=== PATIENT | male | born 1950 | race Caucasian/White ===

== ENCOUNTER 2018-03-15 09:15 | Inpatient (IN) | payer OTHER, MEDICARE ==
[2018-03-15] MEDS ORDERED: NS 0.9% 1000 ML** 1,000 ML IV ONE (09:37)
[2018-03-15] MEDS ORDERED: Ondansetron INJ* 2 MG/ML VIAL IV ONE (09:38)
[2018-03-15] MEDS ORDERED: Thiamine IV* 100 MG, Folic Acid IV* 1 MG, Multiple Vitamin IV ADULT* 10 ML in NS 0.9% 1... IV ONE (09:41)
[2018-03-15 09:59] LABS: ABS Basophils 0 10^3/ul (0-0.2); ABS Eosinophils 0 10^3/ul (0-0.6); ABS Lymphocytes 0.6 10^3/ul (1.0-4.8); ABS Monocytes 0.6 10^3/ul (0-0.8); ABS Neutrophils 5.5 10^3/ul (1.5-7.7); ABS Nucleated RBC 0 10^3/ul; Eosinophil % 0.2 %; Hematocrit 34 % (42-52); Hemoglobin 11.7 g/dl (14.0-18.0); Mean Corpuscular HGB Conc 35 g/dl (31-36); Mean Corpuscular Hemoglobin 32 pg (27-31); Mean Corpuscular Volume 93 fL (80-94); Mean Platelet Volume 7.1 fL (7.4-10.4); Nucleated Red Blood Cells % 0; Platelet Count 110 10^3/ul (150-450); Red Blood Count 3.64 10^6/ul (4.00-5.40); Red Cell Distribution Width 14 % (10.5-15); White Blood Count 6.8 10^3/ul (3.5-10.8)
[2018-03-15] MEDS ORDERED: LORazepam INJ* 2 MG/ML 1 ML VIAL IV PUSH ONE ×2 (10:00→11:17)
--- NOTE | 2018-03-15 10:03 | ED ---
GI/ HPI - HPI Summary HPI Summary: Patient is a 67-year-old male who presents emergency department for nausea and vomiting that started last night. Patient is a history of alcoholism and states he drinks about a pint of liquor a day if not more. Patient states last night he started with numerous episodes of nausea and vomiting. States last drink was yesterday he believes. Denies such symptoms of abdominal pain and diarrhea, fever, chest pain, shortness of breath. Patient also notes today he started with a tremor in his upper extremities. Patient is not sure if he's been through alcohol withdrawal the past. Otherwise has medical history of hypertension and DM. Symptoms are moderate in severity. No current modifying factors. Patient otherwise denies recent illness, cough, fever. - History of Current Complaint Chief Complaint: EDNauseaVomitDiarrh Time Seen by Provider: 03/15/18 09:25 Stated Complaint: NAUSEA Hx Obtained From: Patient Pain Intensity: 0 - Allergy/Home Medications Allergies/Adverse Reactions: Allergies Allergy/AdvReac Type Severity Reaction Status Date / Time hydrochlorothiazide Allergy Unknown Verified 03/15/18 09:36 Reaction Details Home Medications: Home Medications Irbesartan (NF) [Avapro (NF)] 150 mg PO DAILY 03/15/18 [History Confirmed ] Metoprolol Succinate XL TAB* [Toprol XL TAB*] 150 mg PO DAILY 03/15/18 [History Confirmed 03/15/18] amLODIPine TAB* [Norvasc 5 mg TAB*] 5 mg PO DAILY 03/15/18 [History Confirmed ] PMH/Surg Hx/FS Hx/Imm Hx Previously Healthy: Yes Infectious Disease History: No Infectious Disease History: Denies: Traveled Outside the [place] in Last 30 Days - Family History Known Family History: Positive: Non-Contributory - Social History Occupation: Employed Full-time Lives: With Family Alcohol Use: Daily Substance Use Type: Reports: None Smoking Status (MU): Former Smoker Review of Systems Constitutional: Negative Negative: Fever, Chills Eyes: Negative ENT: Negative Cardiovascular: Negative Respiratory: Negative Positive: Vomiting, Nausea. Negative: Abdominal Pain, Diarrhea Genitourinary: Negative Positive: Other - tremor to UEs Skin: Negative Neurological: Negative Negative: Headache, Weakness, Paresthesia, Numbness, Syncope All Other Systems Reviewed And Are Negative: Yes Physical Exam Triage Information Reviewed: Yes Vital Signs On Initial Exam: Initial Vitals Temp Pulse Resp BP Pulse Ox 98.3 F 118 37 152/83 100 03/15/18 09:24 03/15/18 09:24 03/15/18 09:24 03/15/18 09:24 03/15/18 09:24 Vital Signs Reviewed: Yes Appearance: Positive: Ill-Appearing - Pt. sitting up in bed, breathing fast, mild tremors to UEs. present. Skin: Positive: Warm, Dry Head/Face: Positive: Normal Head/Face Inspection, Temporal Artery Tenderness Eyes: Positive: Normal, EOMI, Conjunctiva Clear, Other: - Strabismus right eye Neck: Positive: Supple Respiratory/Lung Sounds: Positive: Clear to Auscultation, Breath Sounds Present Cardiovascular: Positive: Tachycardia Abdomen Description: Positive: Other: - Minimal tenderness to RUQ and epigastric region Musculoskeletal: Positive: Normal, Strength/ROM Intact, Other - Mild tremor to UEs. Neurological: Positive: Normal, CN Intact II-III Psychiatric: Positive: Affect/Mood Appropriate - [place] Coma Scale Best Eye Response: 4 - Spontaneous Best Motor Response: 6 - Obeys Commands Best Verbal Response: 5 - Oriented Coma Scale Total: 15 Diagnostics - Vital Signs Vital Signs Temp Pulse Resp BP Pulse Ox 03/15/18 09:45 32 03/15/18 09:29 118 35 152/83 100 03/15/18 09:24 98.3 F 118 37 152/83 100 - Laboratory Lab Results: Lab Results 03/15/18 Range/Units 09:53 WBC 6.8 (3.5-10.8) 10^3/ul RBC 3.64 L (4.00-5.40) 10^6/ul Hgb 11.7 L (14.0-18.0) g/dl Hct 34 L (42-52) % MCV 93 (80-94) fL MCH 32 H (27-31) pg MCHC 35 (31-36) g/dl RDW 14 (10.5-15) % Plt Count 110 L (150-450) 10^3/ul MPV 7.1 L (7.4-10.4) fL Neut % (Auto) 81.6 % Lymph % (Auto) 9.0 % [place] % (Auto) 8.8 % Eos % (Auto) 0.2 % Baso % (Auto) 0.4 % Absolute Neuts (auto) 5.5 (1.5-7.7) 10^3/ul Absolute Lymphs (auto) 0.6 L (1.0-4.8) 10^3/ul Absolute Monos (auto) 0.6 (0-0.8) 10^3/ul Absolute Eos (auto) 0 (0-0.6) 10^3/ul Absolute Basos (auto) 0 (0-0.2) 10^3/ul Absolute Nucleated RBC 0 10^3/ul Nucleated RBC % 0 Result Diagrams: 03/15/18 09:53 03/15/18 09:53 Lab Statement: Any lab studies that have been ordered have been reviewed, and results considered in the medical decision making process. GIGU Course/Dx - Course Course Of Treatment: Pt. presenting with likely alcohol withdrawal after N/V. He is tachycardic and hypertensive. Pt. started on IV fluids and banana bag. He was given a total of 2mg IV ativan which improved tremors. Labs show mild anemia , mild elevation in liver enzymes, significantly low magnesium. Negative serum ETOH. ECG done at 1043 shows a sinus tachycardia with artifact rate of 107bpm, left axis deviation, no ST elevation or depression. 4gm of magnesium IV given in ED. I spoke with hospitalist, Dr. Arthur, who agrees on admission. - Diagnoses Differential Diagnoses - Male: ACS, Cholecystitis, Cholelithiasis, Dehydration, Gastritis, Gastroenteritis (Bacterial), Gastroenteritis (Viral) Provider Diagnoses: Hypomagnesemia, Alcohol withdrawal Discharge - Sign-Out/Discharge Documenting (check all that apply): Patient Departure Patient Received Moderate/Deep Sedation with Procedure: No - Discharge Plan Condition: Stable Disposition: ADMITTED TO [facility] Referrals: Geovany Partida MD [Primary Care Provider] - - Billing Disposition and Condition Condition: STABLE Disposition: Admitted to [facility]
[2018-03-15 10:26] LABS: ALT 71 U/L (7-52); AST 80 U/L (13-39); Albumin 4.2 g/dL (3.2-5.2); Albumin/Globulin Ratio 1.3 (1-3); Alkaline Phosphatase 52 U/L (34-104); Amylase 33 U/L (29-103); Anion Gap 26 mmol/L (2-11); BUN/Creatinine Ratio 10.5 (8-20); Blood Urea Nitrogen 11 mg/dL (6-24); CO2 Carbon Dioxide 15 mmol/L (22-32); Calcium 10.4 mg/dL (8.6-10.3); Chloride 99 mmol/L (101-111); EGFR African American 85.8 (>60); EGFR Non-African American 70.9 (>60); Globulin 3.3 g/dL (2-4); Glucose 198 mg/dL (70-100); Potassium 3.8 mmol/L (3.5-5.0); Sodium 140 mmol/L (135-145); Total Protein 7.5 g/dL (6.4-8.9)
[2018-03-15 10:29] LABS: Magnesium 0.8 mg/dL (1.9-2.7)
[2018-03-15] MEDS ORDERED: Magnesium Sulfate 2 GM IV* 2 GM/50 ML BAG IVPB ONE ×3 (10:29→16:40)
[2018-03-15 10:57] LABS: Alcohol < 10 mg/dL (<10)
[2018-03-15] MEDS ORDERED: Ondansetron INJ* 2 MG/ML VIAL IV PRN (11:52)
[2018-03-15] MEDS ORDERED: Magnesium Hydroxide LIQ* 30 ML UDC PO PRN (11:52)
[2018-03-15] MEDS ORDERED: Thiamine IV* 100 MG/ML 2 ML VIAL IM ONE (12:00)
[2018-03-15] MEDS ORDERED: Acetaminophen TAB* 325 MG PO PRN (12:00)
[2018-03-15] MEDS ORDERED: Dextrose 50% Syringe 50 ML* 25 GM/50 ML SYRINGE IV PUSH PRN (12:11)
[2018-03-15 12:36] LABS: INR 1.04 (0.77-1.02)
[2018-03-15] MEDS: NS 0.9% 1000 ML** 1,000 ML IV SCH (13:16)
--- NOTE | 2018-03-15 13:53 | HP ---
AMENDED REPORT NOW INCLUDES COSIGNER DESIGNATION CC: Dr. Geovany Partida * ADMISSION HISTORY AND PHYSICAL: DATE OF ADMISSION: 03/15/18 PRIMARY CARE PROVIDER: Dr. Geovany Partida. ATTENDING FOR THIS ADMISSION: Dr. Edgar Arthur.* (DICTATED BY WILL MISTRY NP) CHIEF COMPLAINT: Nausea, vomiting, and inability to ambulate with frequent falls. HISTORY OF PRESENT ILLNESS: This is a very pleasant 67-year-old male patient, who presents to the emergency department by EMS services with his . The patient and endorsed that he has been vomiting since yesterday. The patient is an every day alcohol drinker, approximately 2 pints of scotch on a daily basis. His also endorses that the patient does drink first thing in the morning for many years. The patient seems to minimize his drinking, however , after further discussion, the patient has admitted to drinking more than he initially told the ER staff. In either case, the patient did start vomiting last night uncontrollably. The patient stopped drinking yesterday afternoon because he was not feeling well and then this morning, he became incredibly tremulous, was unable to ambulate. The patient's also states that he has been having frequent falls while at home. A few weeks back he spent 12 hours on the floor, was unable to get up. At that point, the did call EMS services; however, the patient refused medical advice and did not come to the hospital for evaluation. The patient also states that he noticed he was having difficulty driving. He has had some decreased sensation on the right lower extremity and inability to dorsiflex, which is also new for him. The patient in the emergency department is visibly tremulous and tachycardic. He also had very low magnesium of 0.8. For these reasons, we were asked to evaluate the patient for admission. PAST MEDICAL HISTORY: Significant for hypertension and diabetes mellitus, which is diet controlled. MEDICATIONS AT HOME: Include: 1. Amlodipine 5 mg p.o. daily. 2. Metoprolol succinate XL 150 mg p.o. daily. 3. Irbesartan 150 mg p.o. daily. ALLERGIES: The patient has an allergy to HYDROCHLOROTHIAZIDE, which causes dizziness, rash, and shortness of breath. FAMILY HISTORY: A mother with hypertension, a sister with atrial fibrillation. His mother is alive and well. She is 90 years of age. SOCIAL HISTORY: The patient endorses daily alcohol use. Denies tobacco. He states he quit smoking approximately 10 years ago. Denies any illicit drug use. 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 He is . Lives at home with his , Lauren Josue, who is his healthcare proxy. REVIEW OF SYSTEMS: The patient is complaining of mild intermittent nausea now. No vomiting. No abdominal pain. No urinary complaints. He does state he has some focal weakness of the lower extremities. Feels like the right foot he has inability to dorsiflex, which has been persistent for several weeks. Denies any visual disturbances. He does have a mild headache. He is visibly anxious and does have history of anxiety. PHYSICAL EXAMINATION GENERAL: Reveals older appearing, white gentleman, somewhat older than his stated age. VITAL SIGNS: Blood pressure 151/81, heart rate 101, respiratory rate 20, O2 saturation 95% on room air with temperature of 98.3. HEENT: The patient is atraumatic, normocephalic. He has PERRLA with nonicteric sclerae. His right eye does have a wander with right outward gaze, which is the patient's baseline. Oral mucosa is moist. Tongue is midline. NECK: Supple, nontender. No JVD noted. No carotid bruits auscultated. RESPIRATORY: His lungs are clear bilaterally to auscultation with no wheezing, rhonchi, or rales. CARDIOVASCULAR: Positive S1, S2. Rate is tachycardic. Rhythm is regular. No gallops or rubs noted. No murmurs noted. ABDOMEN: Large, obese, protuberant. He has positive bowel sounds in all 4 quadrants. There is no pain at this time. It is difficult to palpate, but it does appear that his liver is palpable below the rib line. Again difficult to assess secondary to the patient's body habitus. MUSCULOSKELETAL: There is no clubbing and no cyanosis. He does have some reddened calloused areas of the right foot and right great toe with some disruption of the right great toenail bed secondary to a tripping accident per patient's report. NEUROLOGIC: He has decreased sensation to the bilateral lower extremities. He endorses an inability to ambulate, so we did not get the patient out of bed. SKIN: Otherwise warm, dry, and intact. PSYCHIATRIC: He is alert and oriented x3. The does state that the patient is forgetful and he is exhibiting some mild anxiety at this time. DIAGNOSTIC STUDIES/LAB DATA: WBCs 6.8, RBCs 3.64, hemoglobin 11.7, hematocrit 34, MCV 93, MCH 32, platelets 110. Sodium 140, potassium 3.8, chloride 99, CO2 15, anion gap is 26, BUN 11, creatinine 1.05, glucose is 198, calcium 10.4, magnesium 0.8, bilirubin 1.20, AST 80, ALT 71, alk phos 52. Troponin is negative at 0.00. Protein at 7.5, albumin 4.2, globulin 3.3, albumin-globulin ratio 1.3, amylase 33, lipase 27. Serum alcohol is less than 10. Chest x-ray in the ER today shows a small right basilar infiltrate, otherwise no cardiomegaly and no further changes noted. Lungs are otherwise clear. EKG showed sinus tachycardia, which I personally reviewed. No further imaging is available. ASSESSMENT: This is a 67-year-old male patient with a history of alcohol abuse times many years, who presents to the emergency department with nausea, vomiting , and what appears to be alcohol withdrawal. PLAN: The patient will be admitted to medical service for inpatient diagnosis. 1. Alcohol abuse with withdrawal: The patient has already received a banana bag in the emergency department. We will continue him on thiamine, folic acid, and multivitamin daily. He has been placed on [facility] protocol for seizure prophylaxis; he is not currently exhibiting any seizures. We will continue normal saline at 75 mL/hr and clear liquid diet as tolerated. 2. Frequent falls: It is unclear whether this is acute or not. The patient's states that he has had progressive decline in function over the past 6 weeks. She feels that his ability to ambulate and drive is surely impaired right now as evidenced by his recent falls, where he was not able to get up from the floor himself. We will get a CAT scan of his head to ensure no central pathology. There is a possibility, because the patient is diabetic that he has some diabetic neuropathy as well. Will obtain PT and OT consults. 3. Transaminitis: His liver enzymes are elevated. We will send him for liver ultrasound and evaluate. Patient possibly has alcoholic hepatitis, which is consistent with his history. Given that the liver function is elevated, we will also get coagulation studies. Continue to follow his labs daily. 4. Hypomagnesemia: Likely secondary to vomiting and alcohol abuse. He has already received 4 g of mag. We will recheck his mag later today and follow daily labs. 5. Diabetes mellitus: The patient states that he is diet controlled; however, he has not had anything to eat or drink since yesterday and his blood glucose is 198. We will draw a hemoglobin A1c. He will be placed on Accu-Cheks a.c. and h.s. with lispro sliding scale. Following the hemoglobin A1c may impact medications for him at discharge to control his diabetes better. 6. Code status is full. 7. DVT prophylaxis: Pending the patient's INR, he is at moderate risk for DVT. However, given his low platelets, and we will check his INR, he may be too high risk for chemo prophylaxis. Once we have his INR, we will determine whether the patient requires SCDs only or if we will place him on heparin subcutaneously. DISPOSITION: The patient has been admitted to inpatient service under Medicine. This case has been discussed with Dr. Arthur, who is the attending on this case. TIME SPENT: Approximately 60 minutes interfacing with the patient and his , and evaluating the chart and labs, determining plan of care. The rest of the patient's course will be determined by further diagnostics, laboratories, and any other input from other providers as warranted during this admission. We will continue to monitor the patient closely. WILL MISTRY, ELIZA [id number]/CPS #: [id number] ABRAN
[2018-03-15 14:34] LABS: Urine Appearance Cloudy; Urine Bilirubin Negative (Negative); Urine Blood Negative (Negative); Urine Color Yellow; Urine Glucose 1+(50 mg/dL) (Negative); Urine Ketones 1+ (Negative); Urine Nitrite Negative (Negative); Urine Protein Negative (Negative); Urine Specific Gravity 1.015 (1.010-1.030); Urine Urobilinogen Negative (Negative)
[2018-03-15] MEDS: amLODIPine TAB* 5 MG PO SCH (15:15)
[2018-03-15] MEDS: LORazepam TAB(*) 1 MG PO SCH ×5 (15:15→23:07)
[2018-03-15] MEDS: Metoprolol Succinate XL TAB* 50 MG PO SCH (15:15)
[2018-03-15] MEDS ORDERED: Scopolamine 1.5 mg* PATCH TRANSDERM SCH (17:00)
[2018-03-15] MEDS: Insulin LISPRO* 1 UNITS UNIT SUBCUT SCH ×2 (17:06→20:35)
[2018-03-16] MEDS: LORazepam TAB(*) 1 MG PO SCH ×7 (02:14→22:16)
[2018-03-16] MEDS: LORazepam INJ* 2 MG/ML 1 ML VIAL IV PUSH PRN ×2 (03:18→20:15)
[2018-03-16 06:20] LABS: INR 1.09 (0.77-1.02)
[2018-03-16 06:23] LABS: Hematocrit 30 % (42-52); Hemoglobin 10.4 g/dl (14.0-18.0); Mean Corpuscular HGB Conc 35 g/dl (31-36); Mean Corpuscular Hemoglobin 32 pg (27-31); Mean Corpuscular Volume 92 fL (80-94); Red Blood Count 3.27 10^6/ul (4.00-5.40); Red Cell Distribution Width 14 % (10.5-15); White Blood Count 3.2 10^3/ul (3.5-10.8)
[2018-03-16 06:41] LABS: Albumin 3.8 g/dL (3.2-5.2); Albumin/Globulin Ratio 1.4 (1-3); BUN/Creatinine Ratio 10.6 (8-20); Calcium 8.9 mg/dL (8.6-10.3); EGFR African American 97.5 (>60); EGFR Non-African American 80.5 (>60); Globulin 2.8 g/dL (2-4); Potassium 3.7 mmol/L (3.5-5.0); Total Bilirubin 1.5 mg/dL (0.2-1.0); Total Protein 6.6 g/dL (6.4-8.9)
[2018-03-16 06:53] LABS: ABS Basophils 0 10^3/ul (0-0.2); ABS Eosinophils 0 10^3/ul (0-0.6); ABS Lymphocytes 0.7 10^3/ul (1.0-4.8); ABS Monocytes 0.4 10^3/ul (0-0.8); ABS Neutrophils 2.1 10^3/ul (1.5-7.7); ABS Nucleated RBC 0 10^3/ul; Lymphocyte % 21.2 %; Mean Platelet Volume 7.4 fL (7.4-10.4); Nucleated Red Blood Cells % 0.1; Platelet Count 66 10^3/ul (150-450)
[2018-03-16] MEDS: NS 0.9% 1000 ML** 1,000 ML IV SCH ×2 (07:35→22:24)
[2018-03-16 07:38] LABS: Magnesium 1.8 mg/dL (1.9-2.7)
[2018-03-16 08:03] LABS: Folate 7.66 ng/mL (>3.99)
[2018-03-16] MEDS ORDERED: Magnesium Sulfate 2 GM IV* 2 GM/50 ML BAG IVPB ONE (08:03)
[2018-03-16] MEDS: Insulin LISPRO* 1 UNITS UNIT SUBCUT SCH ×4 (08:17→20:23)
[2018-03-16] MEDS: Acetaminophen TAB* 325 MG PO PRN (08:33)
[2018-03-16] MEDS: Metoprolol Succinate XL TAB* 50 MG PO SCH (08:41)
[2018-03-16] MEDS: Folic Acid TAB* 1 MG PO SCH (08:42)
[2018-03-16] MEDS: Multivitamins/Minerals TAB PO SCH (08:42)
[2018-03-16] MEDS: Thiamine TAB* 100 MG TAB PO SCH (08:42)
[2018-03-16] MEDS: IRBESARTAN 150 MG PO SCH (08:46)
[2018-03-16] MEDS: amLODIPine TAB* 5 MG PO SCH (08:54)
[2018-03-16] MEDS ORDERED: Albuterol 2.5 MG/3 ML NEB.SOL* (0.083%) INH PRN (09:11)
[2018-03-16] MEDS: guaiFENesin ER TAB 600 MG PO SCH ×2 (10:32→21:59)
[2018-03-16] MEDS: Cyanocobalamin TAB* 500 MCG PO SCH (10:39)
--- NOTE | 2018-03-16 10:54 | PN ---
Subjective Date of Service: 03/16/18 Interval History: Patient is difficult to understand today, is able to mumble words but is mainly unintelligible. Patient denies CP, SOB. Patient denies abdominal pain, F/C, or other pain. Family History: Unchanged from Admission Social History: Unchanged from Admission Past Medical History: Unchanged from Admission Objective Active Medications: Acetaminophen (Tylenol Tab*) 650 mg PO Q4H PRN PRN Reason: FEVER/PAIN Last Admin: 03/16/18 08:33 Dose: 650 mg Albuterol (Ventolin 2.5 Mg/3 Ml Neb.Amber*) 2.5 mg INH Q4H PRN PRN Reason: SOB/WHEEZING Amlodipine Besylate (Norvasc Tab*) 5 mg PO DAILY [facility] Last Admin: 03/16/18 08:54 Dose: Not Given Cyanocobalamin (Vitamin B12 Tab*) 1,000 mcg PO DAILY [facility] Last Admin: 03/16/18 10:39 Dose: 1,000 mcg Dextrose (D50w Syringe 50 Ml*) 12.5 gm IV PUSH .FOR FS < 60 - SS PRN PRN Reason: FS < 60 Folic Acid (Folvite Tab*) 1 mg PO DAILY [facility] Last Admin: 03/16/18 08:42 Dose: Not Given Guaifenesin (Mucinex*) 1,200 mg PO BID [facility] Last Admin: 03/16/18 10:32 Dose: 1,200 mg Sodium Chloride (Ns 0.9% 1000 Ml) 1,000 mls @ 75 mls/hr IV PER RATE [facility] Last Admin: 03/16/18 07:35 Dose: 75 mls/hr Insulin Human Lispro (Humalog*) 0 units SUBCUT ACHS [facility]; Protocol Last Admin: 03/16/18 08:17 Dose: Not Given Irbesartan (Avapro (Nf)) 150 mg PO DAILY [facility] Last Admin: 03/16/18 08:46 Dose: 150 mg Lorazepam (Ativan Tab(*)) 0 - 6 mg PO .PER [facility] PROTOCOL [facility]; Protocol Last Admin: 03/16/18 08:32 Dose: 2 mg Lorazepam (Ativan Inj*) 1 mg IV PUSH Q6H PRN PRN Reason: severe agitation or vomiting Last Admin: 03/16/18 03:18 Dose: 1 mg Magnesium Hydroxide (Milk Of Magnesia Liq*) 30 ml PO Q4H PRN PRN Reason: CONSTIPATION Metoprolol Succinate (Toprol Xl Tab*) 150 mg PO DAILY [facility] Last Admin: 03/16/18 08:41 Dose: 150 mg Multivitamins/Minerals (Theragran/Minerals Tab*) 1 tab PO DAILY [facility] Last Admin: 03/16/18 08:42 Dose: Not Given Ondansetron HCl (Zofran Inj*) 4 mg IV Q4H PRN PRN Reason: NAUSEA/VOMITING Last Admin: 03/15/18 16:34 Dose: 4 mg Pharmacy Profile Note (Scopolamine Patch Remove*) 1 note PATCH OFF Q72H [facility] Scopolamine (Transderm-Scop 1.5 Mg Patch*) 1 patch TRANSDERM Q72H [facility] Last Admin: 03/15/18 17:06 Dose: 1 patch Thiamine HCl (Vitamin B-1 Tab*) 100 mg PO DAILY [facility] Last Admin: 03/16/18 08:42 Dose: Not Given Vital Signs - 8 hr 03/16/18 03/16/18 03/16/18 03:18 04:03 04:04 Temperature 98.4 F Pulse Rate 92 Respiratory 24 20 18 Rate Blood Pressure 151/70 (mmHg) O2 Sat by Pulse 98 Oximetry 03/16/18 03/16/18 03/16/18 04:10 06:03 06:08 Temperature 98.0 F Pulse Rate 86 Respiratory 20 24 22 Rate Blood Pressure 141/73 (mmHg) O2 Sat by Pulse 98 Oximetry 03/16/18 03/16/18 03/16/18 06:11 06:14 07:07 Temperature 99.1 F Pulse Rate 83 Respiratory 24 22 20 Rate Blood Pressure 133/72 (mmHg) O2 Sat by Pulse Oximetry 03/16/18 03/16/18 03/16/18 08:00 08:08 08:15 Temperature 100.1 F Pulse Rate 89 Respiratory 20 20 20 Rate Blood Pressure 142/62 (mmHg) O2 Sat by Pulse 97 Oximetry 03/16/18 03/16/18 08:32 10:07 Temperature 98.7 F Pulse Rate 87 Respiratory 20 20 Rate Blood Pressure 115/66 (mmHg) O2 Sat by Pulse 100 Oximetry Oxygen Devices in Use Now: None Appearance: Patient is a 67yo male who appears stated age and is sitting in the bed in [facility]. Eyes: No Scleral Icterus, PERRLA Ears/Nose/Mouth/Throat: NL Teeth, Lips, Gums, Clear Oropharnyx, Mucous Membranes Moist Neck: NL Appearance and Movements; NL JVP, Trachea Midline Respiratory: Symmetrical Chest Expansion and Respiratory Effort, - - Rhonchi throughout. Cardiovascular: NL Sounds; No Murmurs; No JVD, RRR, No Edema Abdominal: NL Sounds; No Tenderness; No Distention, No Hepatosplenomegaly Lymphatic: No Cervical Adenopathy Extremities: No Edema, No Clubbing, Cyanosis Skin: No Rash or Ulcers, No Nodules or Sclerosis Neurological: - - Right leg plantar and dorsiflexion weakness. CN II-XII grossly intact. Result Diagrams: 03/16/18 05:43 03/16/18 05:43 Additional Lab and Data: Lab Results Assess/Plan/Problems-Billing Assessment: Patient is a 67yo male with a PMH for alcohol abuse, DM II, HTN, who is admitted with nausea and alcohol withdrawal and is still suffering significant symptoms of withdrawal. - Patient Problems (1) Alcohol withdrawal Current Visit: Yes Status: Acute Code(s): F10.239 - ALCOHOL DEPENDENCE WITH WITHDRAWAL, UNSPECIFIED SNOMED Code(s): 172690249 Comment: - Likely had to stop drinking due to nausea and then began withdrawing - Continue [facility] protocol, is having tachycardia, AMS, Tremor, agitation - Continue vitamin supplementation - Replace electrolytes PRN - Has mild alcoholic hepatitis, no indication for steroids at this time. (2) Right leg weakness Current Visit: Yes Status: Acute Code(s): R29.898 - OTH SYMPTOMS AND SIGNS INVOLVING THE MUSCULOSKELETAL SYSTEM SNOMED Code(s): 915646764 Comment: - Unknown cause, no back pain able to be elicited on exam - Possible radiculoapthy, also bordeline B12 deficient, diabetic and alcoholic which may be contributing to neuropathy - Will need further evaluation after WAM. - Contributing to frequent falls. (3) DM II (diabetes mellitus, type II), controlled Current Visit: Yes Status: Acute Code(s): E11.9 - TYPE 2 DIABETES MELLITUS WITHOUT COMPLICATIONS SNOMED Code(s): 97609544 Comment: - SSI while in the hospital, good control with A1c of 5.9 (4) HTN (hypertension) Current Visit: Yes Status: Acute Code(s): I10 - ESSENTIAL (PRIMARY) HYPERTENSION SNOMED Code(s): 24431057 Comment: - Normotensive, continue irbesartan and amlodipine. (5) Pancytopenia Current Visit: Yes Status: Acute Code(s): D61.818 - OTHER PANCYTOPENIA SNOMED Code(s): 013153241 Comment: - Likely alcohol induced - Monitor daily (6) DVT prophylaxis Current Visit: Yes Status: Acute Code(s): OMM5455 - SNOMED Code(s): 500089213 Comment: - SCDs in setting to thrombocytopenia (7) Full code status Current Visit: Yes Status: Acute Code(s): Z78.9 - OTHER SPECIFIED HEALTH STATUS SNOMED Code(s): 675302792 Status and Disposition: Inpatient for alcohol withdrawal
[2018-03-17] MEDS: Nystatin TOP POWDER* 15 GM BTL TOPICAL SCH ×3 (02:12→22:07)
[2018-03-17] MEDS: LORazepam TAB(*) 1 MG PO SCH ×5 (06:21→22:06)
[2018-03-17 07:28] LABS: Albumin 3.7 g/dL (3.2-5.2); Albumin/Globulin Ratio 1.2 (1-3); BUN/Creatinine Ratio 11.4 (8-20); Calcium 8.9 mg/dL (8.6-10.3); EGFR African American 105.2 (>60); EGFR Non-African American 86.9 (>60); Globulin 3.2 g/dL (2-4); Magnesium 1.9 mg/dL (1.9-2.7); Total Bilirubin 1.7 mg/dL (0.2-1.0); Total Protein 6.9 g/dL (6.4-8.9)
[2018-03-17 07:31] LABS: Potassium 3.9 mmol/L (3.5-5.0)
[2018-03-17 07:59] LABS: ABS Basophils 0 10^3/ul (0-0.2); ABS Eosinophils 0.1 10^3/ul (0-0.6); ABS Lymphocytes 1.1 10^3/ul (1.0-4.8); ABS Monocytes 0.8 10^3/ul (0-0.8); ABS Neutrophils 4.1 10^3/ul (1.5-7.7); ABS Nucleated RBC 0 10^3/ul; Hematocrit 32 % (42-52); Hemoglobin 10.7 g/dl (14.0-18.0); Lymphocyte % 17.5 %; Mean Corpuscular HGB Conc 34 g/dl (31-36); Mean Corpuscular Hemoglobin 31 pg (27-31); Mean Corpuscular Volume 94 fL (80-94); Mean Platelet Volume 8.5 fL (7.4-10.4); Nucleated Red Blood Cells % 0.2; Red Cell Distribution Width 14 % (10.5-15); White Blood Count 6.2 10^3/ul (3.5-10.8)
[2018-03-17 08:00] LABS: Platelet Count 69 10^3/ul (150-450)
[2018-03-17] MEDS: Insulin LISPRO* 1 UNITS UNIT SUBCUT SCH ×2 (08:36→13:36)
[2018-03-17] MEDS: Metoprolol Succinate XL TAB* 50 MG PO SCH (09:30)
[2018-03-17] MEDS: Folic Acid TAB* 1 MG PO SCH (09:30)
[2018-03-17] MEDS: Thiamine TAB* 100 MG TAB PO SCH (09:30)
[2018-03-17] MEDS: amLODIPine TAB* 5 MG PO SCH (09:30)
[2018-03-17] MEDS: Cyanocobalamin TAB* 500 MCG PO SCH (09:30)
[2018-03-17] MEDS: guaiFENesin ER TAB 600 MG PO SCH ×2 (09:30→22:06)
[2018-03-17] MEDS: Multivitamins/Minerals TAB PO SCH (09:30)
[2018-03-17] MEDS: IRBESARTAN 150 MG PO SCH (09:30)
[2018-03-17] MEDS: Acetaminophen TAB* 325 MG PO PRN (10:39)
--- NOTE | 2018-03-17 11:15 | PN ---
Subjective Date of Service: 03/17/18 Interval History: Patient is still very lethargic, but is having no more "shadow boxing" movements which his said were happening frequently. Patient is interactive and is able to open eyes and respond to questions, but responses are unintelligible. Discussed with who has been cleaning alcohol out of the house and states that there is much more than she anticipated based on his known drinking. Family History: Unchanged from Admission Social History: Unchanged from Admission Past Medical History: Unchanged from Admission Objective Active Medications: Acetaminophen (Tylenol Tab*) 650 mg PO Q4H PRN PRN Reason: FEVER/PAIN Last Admin: 03/17/18 10:39 Dose: 650 mg Albuterol (Ventolin 2.5 Mg/3 Ml Neb.Amber*) 2.5 mg INH Q4H PRN PRN Reason: SOB/WHEEZING Amlodipine Besylate (Norvasc Tab*) 5 mg PO DAILY [facility] Last Admin: 03/17/18 09:30 Dose: 5 mg Cyanocobalamin (Vitamin B12 Tab*) 1,000 mcg PO DAILY [facility] Last Admin: 03/17/18 09:30 Dose: 1,000 mcg Dextrose (D50w Syringe 50 Ml*) 12.5 gm IV PUSH .FOR FS < 60 - SS PRN PRN Reason: FS < 60 Folic Acid (Folvite Tab*) 1 mg PO DAILY [facility] Last Admin: 03/17/18 09:30 Dose: 1 mg Guaifenesin (Mucinex*) 1,200 mg PO BID [facility] Last Admin: 03/17/18 09:30 Dose: 1,200 mg Sodium Chloride (Ns 0.9% 1000 Ml) 1,000 mls @ 75 mls/hr IV PER RATE [facility] Last Admin: 03/16/18 22:24 Dose: 75 mls/hr Insulin Human Lispro (Humalog*) 0 units SUBCUT ACHS [facility]; Protocol Last Admin: 03/17/18 08:36 Dose: Not Given Irbesartan (Avapro (Nf)) 150 mg PO DAILY [facility] Last Admin: 03/17/18 09:30 Dose: 150 mg Lorazepam (Ativan Tab(*)) 0 - 6 mg PO .PER [facility] PROTOCOL [facility]; Protocol Last Admin: 03/17/18 10:39 Dose: 2 mg Lorazepam (Ativan Inj*) 1 mg IV PUSH Q6H PRN PRN Reason: severe agitation or vomiting Last Admin: 03/16/18 20:15 Dose: 1 mg Magnesium Hydroxide (Milk Of Magnesia Liq*) 30 ml PO Q4H PRN PRN Reason: CONSTIPATION Metoprolol Succinate (Toprol Xl Tab*) 150 mg PO DAILY [facility] Last Admin: 03/17/18 09:30 Dose: 150 mg Multivitamins/Minerals (Theragran/Minerals Tab*) 1 tab PO DAILY [facility] Last Admin: 03/17/18 09:30 Dose: 1 tab Nystatin (Nystatin Top Powder*) 1 applic TOPICAL BID [facility] Last Admin: 03/17/18 09:31 Dose: 1 applic Ondansetron HCl (Zofran Inj*) 4 mg IV Q4H PRN PRN Reason: NAUSEA/VOMITING Last Admin: 03/15/18 16:34 Dose: 4 mg Thiamine HCl (Vitamin B-1 Tab*) 100 mg PO DAILY [facility] Last Admin: 03/17/18 09:30 Dose: 100 mg Vital Signs - 8 hr 03/17/18 03/17/18 03/17/18 03:21 04:03 04:05 Temperature 99.7 F 99.7 F Pulse Rate 93 88 88 Respiratory 20 24 28 Rate Blood Pressure 146/71 146/71 (mmHg) O2 Sat by Pulse 96 95 95 Oximetry 03/17/18 03/17/18 03/17/18 06:11 06:14 06:21 Temperature 98.6 F Pulse Rate 98 Respiratory 32 32 32 Rate Blood Pressure 150/92 (mmHg) O2 Sat by Pulse 98 Oximetry 03/17/18 03/17/18 03/17/18 08:00 08:09 08:20 Temperature 98.6 F Pulse Rate 92 Respiratory 22 21 22 Rate Blood Pressure 142/80 (mmHg) O2 Sat by Pulse 95 Oximetry 03/17/18 03/17/18 10:07 10:39 Temperature 100.3 F Pulse Rate 87 Respiratory 24 28 Rate Blood Pressure 128/78 (mmHg) O2 Sat by Pulse 98 Oximetry Oxygen Devices in Use Now: None Appearance: Patient is a 67yo male who appears stated age and is sitting in the bed in [facility]. Eyes: No Scleral Icterus, PERRLA Ears/Nose/Mouth/Throat: NL Teeth, Lips, Gums, Clear Oropharnyx, - - Very dry mouth. Neck: NL Appearance and Movements; NL JVP, Trachea Midline Respiratory: Symmetrical Chest Expansion and Respiratory Effort, - - Rhonchi in bronchial areas. Cardiovascular: NL Sounds; No Murmurs; No JVD, RRR, No Edema Abdominal: NL Sounds; No Tenderness; No Distention, No Hepatosplenomegaly Lymphatic: No Cervical Adenopathy Extremities: No Edema, No Clubbing, Cyanosis Skin: No Rash or Ulcers, No Nodules or Sclerosis Neurological: - - Unable to cooperate with neuro exam today. Result Diagrams: 03/17/18 06:35 03/17/18 06:35 Additional Lab and Data: Lab Results Assess/Plan/Problems-Billing Assessment: Patient is a 67yo male with a PMH for alcohol abuse, DM II, HTN, who is admitted with nausea and alcohol withdrawal and is still suffering significant symptoms of withdrawal. - Patient Problems (1) Alcohol withdrawal Current Visit: Yes Status: Acute Code(s): F10.239 - ALCOHOL DEPENDENCE WITH WITHDRAWAL, UNSPECIFIED SNOMED Code(s): 504618327 Comment: - Improvement gradually. - Likely had to stop drinking due to nausea and then began withdrawing - Continue WAM protocol, is having tachycardia, AMS, Tremor, agitation - Continue vitamin supplementation - Replace electrolytes PRN - Has mild alcoholic hepatitis, no indication for steroids at this time. (2) Right leg weakness Current Visit: Yes Status: Acute Code(s): R29.898 - OTH SYMPTOMS AND SIGNS INVOLVING THE MUSCULOSKELETAL SYSTEM SNOMED Code(s): 459781281 Comment: - Unknown cause, no back pain able to be elicited on exam - Possible radiculoapthy, also bordeline B12 deficient, diabetic and alcoholic which may be contributing to neuropathy - Will need further evaluation after WAM. - Contributing to frequent falls. (3) DM II (diabetes mellitus, type II), controlled Current Visit: Yes Status: Acute Code(s): E11.9 - TYPE 2 DIABETES MELLITUS WITHOUT COMPLICATIONS SNOMED Code(s): 44799966 Comment: - SSI while in the hospital, good control with A1c of 5.9 (4) HTN (hypertension) Current Visit: Yes Status: Acute Code(s): I10 - ESSENTIAL (PRIMARY) HYPERTENSION SNOMED Code(s): 67702605 Comment: - Normotensive, continue irbesartan and amlodipine. (5) Pancytopenia Current Visit: Yes Status: Acute Code(s): D61.818 - OTHER PANCYTOPENIA SNOMED Code(s): 293995846 Comment: - Stable with slight improvement. - Likely alcohol induced - Monitor daily (6) DVT prophylaxis Current Visit: Yes Status: Acute Code(s): MAR5530 - SNOMED Code(s): 696587092 Comment: - SCDs in setting to thrombocytopenia (7) Full code status Current Visit: Yes Status: Acute Code(s): Z78.9 - OTHER SPECIFIED HEALTH STATUS SNOMED Code(s): 316044447 Status and Disposition: Inpatient for alcohol withdrawal, May benefit from alcohol rehab at discharge.
[2018-03-17] MEDS: NS 0.9% 1000 ML** 1,000 ML IV SCH ×2 (11:42→19:15)
[2018-03-17 17:51] LABS: Urine Appearance Clear; Urine Bacteria Absent (Absent); Urine Bilirubin 1+ (Negative); Urine Blood Negative (Negative); Urine Color Amber; Urine Glucose Negative (Negative); Urine Ketones Trace (Negative); Urine Nitrite Negative (Negative); Urine Protein 1+(30 mg/dL) (Negative); Urine Red Blood Cell Trace(0-2/hpf) (Absent); Urine Specific Gravity 1.024 (1.010-1.030); Urine Urobilinogen Positive (Negative); Urine White Blood Cell Trace(0-5/hpf) (Absent)
[2018-03-17 19:27] LABS: Myoglobin 60.2 ng/mL (17.4-105.7)
[2018-03-18] MEDS: LORazepam TAB(*) 1 MG PO SCH (01:07)
[2018-03-18] MEDS: NS 0.9% 1000 ML** 1,000 ML IV SCH ×2 (06:25→15:52)
[2018-03-18 07:40] LABS: ABS Basophils 0 10^3/ul (0-0.2); ABS Eosinophils 0.2 10^3/ul (0-0.6); ABS Lymphocytes 0.8 10^3/ul (1.0-4.8); ABS Monocytes 0.6 10^3/ul (0-0.8); ABS Neutrophils 2.4 10^3/ul (1.5-7.7); ABS Nucleated RBC 0 10^3/ul; Eosinophil % 4.1 %; Hematocrit 30 % (42-52); Lymphocyte % 20.9 %; Mean Corpuscular HGB Conc 34 g/dl (31-36); Mean Corpuscular Hemoglobin 31 pg (27-31); Mean Corpuscular Volume 94 fL (80-94); Mean Platelet Volume 7.4 fL (7.4-10.4); Nucleated Red Blood Cells % 0; Platelet Count 55 10^3/ul (150-450); Red Blood Count 3.17 10^6/ul (4.00-5.40); Red Cell Distribution Width 14 % (10.5-15)
[2018-03-18 07:47] LABS: BUN/Creatinine Ratio 20.3 (8-20); Calcium 8.6 mg/dL (8.6-10.3); EGFR African American 128.4 (>60); EGFR Non-African American 106.2 (>60); Magnesium 1.7 mg/dL (1.9-2.7); Potassium 3.5 mmol/L (3.5-5.0)
[2018-03-18] MEDS: amLODIPine TAB* 5 MG PO SCH (08:30)
[2018-03-18] MEDS: Multivitamins/Minerals TAB PO SCH (08:30)
[2018-03-18] MEDS: Folic Acid TAB* 1 MG PO SCH (08:30)
[2018-03-18] MEDS: Metoprolol Succinate XL TAB* 50 MG PO SCH (08:30)
[2018-03-18] MEDS: IRBESARTAN 150 MG PO SCH (08:30)
[2018-03-18] MEDS: Nystatin TOP POWDER* 15 GM BTL TOPICAL SCH ×2 (08:30→22:11)
[2018-03-18] MEDS: Thiamine TAB* 100 MG TAB PO SCH (08:30)
[2018-03-18] MEDS: guaiFENesin ER TAB 600 MG PO SCH ×2 (08:30→22:10)
[2018-03-18] MEDS: Cyanocobalamin TAB* 500 MCG PO SCH (08:30)
[2018-03-18] MEDS ORDERED: Magnesium Sulfate IV* 3 GM in NS 0.9% 100 ML* 100 ML IVPB ONE (13:34)
--- NOTE | 2018-03-18 13:42 | PN ---
Subjective Date of Service: 03/18/18 Interval History: Patient much more alert today. Patient does not remember much of the last several days. Patient denies CP, SOB, F/C, N/V, abdominal pain, diarrhea, passing out, palpitations. Patient has been having more frequent falls and unsteadiness since last summer for which he has never been evaluated. Patient has occasional low back pain but denies radicular symptoms. Patient states he has had strabismus since he was 18 years old, but his says it has gotten much worse recently. Patient also complains of significant worsening in his vision, particularly at night. Family History: Unchanged from Admission Social History: Unchanged from Admission Past Medical History: Unchanged from Admission Objective Active Medications: Acetaminophen (Tylenol Tab*) 650 mg PO Q4H PRN PRN Reason: FEVER/PAIN Last Admin: 03/17/18 10:39 Dose: 650 mg Albuterol (Ventolin 2.5 Mg/3 Ml Neb.Amber*) 2.5 mg INH Q4H PRN PRN Reason: SOB/WHEEZING Amlodipine Besylate (Norvasc Tab*) 5 mg PO DAILY [facility] Last Admin: 03/18/18 08:30 Dose: 5 mg Cyanocobalamin (Vitamin B12 Tab*) 1,000 mcg PO DAILY [facility] Last Admin: 03/18/18 08:30 Dose: 1,000 mcg Dextrose (D50w Syringe 50 Ml*) 12.5 gm IV PUSH .FOR FS < 60 - SS PRN PRN Reason: FS < 60 Folic Acid (Folvite Tab*) 1 mg PO DAILY [facility] Last Admin: 03/18/18 08:30 Dose: 1 mg Guaifenesin (Mucinex*) 1,200 mg PO BID [facility] Last Admin: 03/18/18 08:30 Dose: 1,200 mg Sodium Chloride (Ns 0.9% 1000 Ml) 1,000 mls @ 100 mls/hr IV PER RATE [facility] Last Admin: 03/18/18 06:25 Dose: 100 mls/hr Irbesartan (Avapro (Nf)) 150 mg PO DAILY [facility] Last Admin: 03/18/18 08:30 Dose: 150 mg Lorazepam (Ativan Tab(*)) 0 - 6 mg PO .PER [facility] PROTOCOL [facility]; Protocol Last Admin: 03/18/18 01:07 Dose: 2 mg Magnesium Hydroxide (Milk Of Magnchristine Liq*) 30 ml PO Q4H PRN PRN Reason: CONSTIPATION Metoprolol Succinate (Toprol Xl Tab*) 150 mg PO DAILY [facility] Last Admin: 03/18/18 08:30 Dose: 150 mg Multivitamins/Minerals (Theragran/Minerals Tab*) 1 tab PO DAILY [facility] Last Admin: 03/18/18 08:30 Dose: 1 tab Nystatin (Nystatin Top Powder*) 1 applic TOPICAL BID [facility] Last Admin: 03/18/18 08:30 Dose: 1 applic Ondansetron HCl (Zofran Inj*) 4 mg IV Q4H PRN PRN Reason: NAUSEA/VOMITING Last Admin: 03/15/18 16:34 Dose: 4 mg Thiamine HCl (Vitamin B-1 Tab*) 100 mg PO DAILY [facility] Last Admin: 03/18/18 08:30 Dose: 100 mg Vital Signs - 8 hr 03/18/18 03/18/18 03/18/18 05:58 07:55 08:12 Temperature 98.0 F 98.0 F Pulse Rate 80 80 Respiratory 26 22 19 Rate Blood Pressure 147/78 154/79 (mmHg) O2 Sat by Pulse 99 99 Oximetry 03/18/18 10:11 Temperature 98.2 F Pulse Rate 76 Respiratory 19 Rate Blood Pressure 131/81 (mmHg) O2 Sat by Pulse 97 Oximetry Oxygen Devices in Use Now: None Appearance: Patient is a 67yo male who appears stated age and is sitting in the bed in [facility]. Eyes: No Scleral Icterus, PERRLA Ears/Nose/Mouth/Throat: NL Teeth, Lips, Gums, Clear Oropharnyx, - - Dry Mouth Neck: NL Appearance and Movements; NL JVP, Trachea Midline Respiratory: Symmetrical Chest Expansion and Respiratory Effort, Clear to Auscultation Cardiovascular: NL Sounds; No Murmurs; No JVD, RRR, No Edema Abdominal: NL Sounds; No Tenderness; No Distention, No Hepatosplenomegaly Lymphatic: No Cervical Adenopathy Extremities: No Edema, No Clubbing, Cyanosis Skin: No Rash or Ulcers, No Nodules or Sclerosis Neurological: Alert and Oriented x 3, - - Left eye exotropia better with focusing. Possible slight right sided facial droop. General weakness. 2/5 strength with Right foot dorsiflexion, 4-/5 strength with plantarflexion. Result Diagrams: 03/18/18 07:04 03/18/18 07:04 Additional Lab and Data: Lab Results Assess/Plan/Problems-Billing Assessment: Patient is a 67yo male with a PMH for alcohol abuse, DM II, HTN, who is admitted with nausea and alcohol withdrawal and is still suffering significant symptoms of withdrawal. - Patient Problems (1) Alcohol withdrawal Current Visit: Yes Status: Acute Code(s): F10.239 - ALCOHOL DEPENDENCE WITH WITHDRAWAL, UNSPECIFIED SNOMED Code(s): 047622665 Comment: - Improved dramatically overnight - Likely had to stop drinking due to nausea and then began withdrawing - Continue WAM protocol, symptoms much improved - Appreciate social work assistance with programs for abstinence maintenance. - Continue vitamin supplementation - Replace electrolytes PRN - Has mild alcoholic hepatitis, no indication for steroids at this time. (2) Right leg weakness Current Visit: Yes Status: Acute Code(s): R29.898 - OTH SYMPTOMS AND SIGNS INVOLVING THE MUSCULOSKELETAL SYSTEM SNOMED Code(s): 177767312 Comment: - Unknown cause, no back pain able to be elicited on exam - Possible radiculoapthy, also bordeline B12 deficient, diabetic and alcoholic which may be contributing to neuropathy, though no evidence of polyneuropathy - Patient states it is much worse over last 2 weeks - Contributing to frequent falls. - MRI brain and Lumbar spine without contrast, possible neuro consult pending results. (3) DM II (diabetes mellitus, type II), controlled Current Visit: Yes Status: Acute Code(s): E11.9 - TYPE 2 DIABETES MELLITUS WITHOUT COMPLICATIONS SNOMED Code(s): 56409504 Comment: - SSI while in the hospital, good control with A1c of 5.9 (4) HTN (hypertension) Current Visit: Yes Status: Acute Code(s): I10 - ESSENTIAL (PRIMARY) HYPERTENSION SNOMED Code(s): 07385035 Comment: - Normotensive, continue irbesartan and amlodipine. (5) Pancytopenia Current Visit: Yes Status: Acute Code(s): D61.818 - OTHER PANCYTOPENIA SNOMED Code(s): 413063961 Comment: - Continued decrease in platelets, continue to hold DVT prophylaxis. - Likely alcohol induced - Monitor daily (6) DVT prophylaxis Current Visit: Yes Status: Acute Code(s): OJC7653 - SNOMED Code(s): 220113125 Comment: - SCDs in setting to thrombocytopenia (7) Full code status Current Visit: Yes Status: Acute Code(s): Z78.9 - OTHER SPECIFIED HEALTH STATUS SNOMED Code(s): 568714894 Status and Disposition: Inpatient for alcohol withdrawal, May benefit from alcohol rehab at discharge. Anticipate 1-2 more days.
[2018-03-18] MEDS ORDERED: Scopolamine PATCH Remove* 1 NOTE MISC PATCH OFF SCH (17:00)
[2018-03-18] MEDS: Thiamine IV* 250 MG in NS 0.9% 100 ML* 100 ML IV SCH (18:17)
[2018-03-19] MEDS: Calcium Carbonate CHEW TAB* 500 MG (TUMS) PO PRN ×2 (00:19→20:58)
[2018-03-19 06:14] LABS: ABS Basophils 0 10^3/ul (0-0.2); ABS Eosinophils 0.1 10^3/ul (0-0.6); ABS Lymphocytes 0.9 10^3/ul (1.0-4.8); ABS Monocytes 0.6 10^3/ul (0-0.8); ABS Neutrophils 1.8 10^3/ul (1.5-7.7); ABS Nucleated RBC 0 10^3/ul; Eosinophil % 3.8 %; Hematocrit 29 % (42-52); Hemoglobin 9.8 g/dl (14.0-18.0); Lymphocyte % 26.4 %; Mean Corpuscular HGB Conc 34 g/dl (31-36); Mean Corpuscular Hemoglobin 32 pg (27-31); Mean Corpuscular Volume 93 fL (80-94); Mean Platelet Volume 7.6 fL (7.4-10.4); Nucleated Red Blood Cells % 0; Platelet Count 68 10^3/ul (150-450); Red Blood Count 3.06 10^6/ul (4.00-5.40); Red Cell Distribution Width 14 % (10.5-15); White Blood Count 3.4 10^3/ul (3.5-10.8)
[2018-03-19 06:29] LABS: Albumin 3.3 g/dL (3.2-5.2); BUN/Creatinine Ratio 18.1 (8-20); Calcium 8.9 mg/dL (8.6-10.3); EGFR African American 132.6 (>60); EGFR Non-African American 109.6 (>60); Globulin 3.2 g/dL (2-4); Magnesium 1.9 mg/dL (1.9-2.7); Potassium 3.4 mmol/L (3.5-5.0); Total Bilirubin 1.1 mg/dL (0.2-1.0); Total Protein 6.5 g/dL (6.4-8.9)
[2018-03-19] MEDS: guaiFENesin ER TAB 600 MG PO SCH ×2 (09:44→20:58)
[2018-03-19] MEDS: Metoprolol Succinate XL TAB* 50 MG PO SCH (09:44)
[2018-03-19] MEDS: Folic Acid TAB* 1 MG PO SCH (09:45)
[2018-03-19] MEDS: Multivitamins/Minerals TAB PO SCH (09:45)
[2018-03-19] MEDS: Cyanocobalamin TAB* 500 MCG PO SCH (09:46)
[2018-03-19] MEDS: amLODIPine TAB* 5 MG PO SCH (09:46)
[2018-03-19] MEDS: Nystatin TOP POWDER* 15 GM BTL TOPICAL SCH ×2 (09:47→21:09)
[2018-03-19] MEDS: IRBESARTAN 150 MG PO SCH (09:47)
[2018-03-19] MEDS ORDERED: Magnesium Sulfate 2 GM IV* 2 GM/50 ML BAG IVPB ONE (10:01)
[2018-03-19] MEDS ORDERED: Potassium Chlor TAB* 20 MEQ TAB.ER PO ONE (10:01)
--- NOTE | 2018-03-19 10:14 | PN ---
Subjective Date of Service: 03/19/18 Interval History: Resting in chair on assessment. Reports he feels improved today. Declines any new symptoms. Per nursing, patient walked 25 ft with walker and sba. In addition physical therapy reports right foot drop. Patient denies cp, sob, palpitations, nausea, vomiting, diarrhea, fever/chills. Family History: Unchanged from Admission Social History: Unchanged from Admission Past Medical History: Unchanged from Admission Objective Active Medications: Acetaminophen (Tylenol Tab*) 650 mg PO Q4H PRN PRN Reason: FEVER/PAIN Last Admin: 03/17/18 10:39 Dose: 650 mg Albuterol (Ventolin 2.5 Mg/3 Ml Neb.Amber*) 2.5 mg INH Q4H PRN PRN Reason: SOB/WHEEZING Amlodipine Besylate (Norvasc Tab*) 5 mg PO DAILY [facility] Last Admin: 03/19/18 09:46 Dose: 5 mg Calcium Carbonate (Tums*) 500 mg PO BID PRN PRN Reason: indigestion Last Admin: 03/19/18 00:19 Dose: 500 mg Cyanocobalamin (Vitamin B12 Tab*) 1,000 mcg PO DAILY [facility] Last Admin: 03/19/18 09:46 Dose: 1,000 mcg Dextrose (D50w Syringe 50 Ml*) 12.5 gm IV PUSH .FOR FS < 60 - SS PRN PRN Reason: FS < 60 Folic Acid (Folvite Tab*) 1 mg PO DAILY [facility] Last Admin: 03/19/18 09:45 Dose: 1 mg Guaifenesin (Mucinex*) 1,200 mg PO BID [facility] Last Admin: 03/19/18 09:44 Dose: 1,200 mg Thiamine HCl 250 mg/ Sodium (Chloride) 102.5 mls @ 205 mls/hr IV Q24H [facility] Stop: 03/20/18 18:29 Last Admin: 03/18/18 18:17 Dose: 205 mls/hr Magnesium Sulfate (Magnesium Sulfate 2 Gm Iv*) 2 gm in 50 mls @ 50 mls/hr IVPB ONCE ONE Stop: 03/19/18 11:00 Irbesartan (Avapro (Nf)) 150 mg PO DAILY [facility] Last Admin: 03/19/18 09:47 Dose: 150 mg Lorazepam (Ativan Tab(*)) 0 - 6 mg PO .PER [facility] PROTOCOL [facility]; Protocol Last Admin: 03/18/18 01:07 Dose: 2 mg Magnesium Hydroxide (Milk Of Magnchristine Liq*) 30 ml PO Q4H PRN PRN Reason: CONSTIPATION Metoprolol Succinate (Toprol Xl Tab*) 150 mg PO DAILY [facility] Last Admin: 03/19/18 09:44 Dose: 150 mg Multivitamins/Minerals (Theragran/Minerals Tab*) 1 tab PO DAILY [facility] Last Admin: 03/19/18 09:45 Dose: 1 tab Nystatin (Nystatin Top Powder*) 1 applic TOPICAL BID [facility] Last Admin: 03/19/18 09:47 Dose: Not Given Ondansetron HCl (Zofran Inj*) 4 mg IV Q4H PRN PRN Reason: NAUSEA/VOMITING Last Admin: 03/15/18 16:34 Dose: 4 mg Vital Signs - 8 hr 03/19/18 03/19/18 03/19/18 04:41 05:48 07:46 Temperature 98.6 F 98.1 F Pulse Rate 76 73 Respiratory 20 18 14 Rate Blood Pressure 136/79 150/80 (mmHg) O2 Sat by Pulse 100 100 Oximetry 03/19/18 08:07 Temperature 98.6 F Pulse Rate 79 Respiratory 18 Rate Blood Pressure 138/73 (mmHg) O2 Sat by Pulse 99 Oximetry Oxygen Devices in Use Now: None Appearance: Comfortable, NAD Eyes: No Scleral Icterus Ears/Nose/Mouth/Throat: Clear Oropharnyx, Mucous Membranes Moist Neck: NL Appearance and Movements; NL JVP Respiratory: Symmetrical Chest Expansion and Respiratory Effort, Clear to Auscultation Cardiovascular: NL Sounds; No Murmurs; No JVD, RRR, No Edema Abdominal: NL Sounds; No Tenderness; No Distention Lymphatic: No Cervical Adenopathy Extremities: No Edema Skin: No Rash or Ulcers Neurological: Alert and Oriented x 3, - - Left eye exotropia which patient reports is baseline since age 18. 2/5 strength in right foot dorsiflexion, 4/5 plantar flex. UE and LE strength equal. Nutrition: Taking PO's Result Diagrams: 03/19/18 05:17 03/19/18 05:17 Additional Lab and Data: Laboratory Results - last 24 hr 03/16/18 03/19/18 03/19/18 05:43 05:17 05:17 WBC 3.4 L RBC 3.06 L Hgb 9.8 L Hct 29 L MCV 93 MCH 32 H MCHC 34 RDW 14 Plt Count 68 L MPV 7.6 Neut % (Auto) 52.6 Lymph % (Auto) 26.4 [place] % (Auto) 16.6 Eos % (Auto) 3.8 Baso % (Auto) 0.6 Absolute Neuts (auto) 1.8 Absolute Lymphs (auto) 0.9 L Absolute Monos (auto) 0.6 Absolute Eos (auto) 0.1 Absolute Basos (auto) 0 Absolute Nucleated RBC 0 Nucleated RBC % 0 Hem Pathologist Commnt Sodium 137 Potassium 3.4 L Chloride 107 Carbon Dioxide 23 Anion Gap 7 BUN 13 Creatinine 0.72 Est GFR ( Amer) 132.6 Est GFR (Non-Af Amer) 109.6 BUN/Creatinine Ratio 18.1 Glucose 122 H Calcium 8.9 Magnesium 1.9 Total Bilirubin 1.10 H AST 36 ALT 32 Alkaline Phosphatase 54 Total Protein 6.5 Albumin 3.3 Globulin 3.2 Albumin/Globulin Ratio 1.0 Microbiology and Other Data: Microbiology 03/17/18 16:55 Urine Urine Culture - Final No Growth (<1,000 CFU/mL) Assess/Plan/Problems-Billing Assessment: Patient is a 67yo male with a PMH for alcohol abuse, DM II, HTN, who is admitted with nausea and alcohol withdrawal and is still suffering significant symptoms of withdrawal. - Patient Problems (1) Alcohol withdrawal Comment: - Improving - Likely had to stop drinking due to nausea and then began withdrawing - Continue WAM protocol, symptoms much improved - Appreciate social work assistance with programs for abstinence maintenance. Possible [facility] placement - Continue vitamin supplementation - Replace electrolytes PRN - Has mild alcoholic hepatitis, no indication for steroids at this time. (2) DM II (diabetes mellitus, type II), controlled Comment: - SSI while in the hospital, good control with A1c of 5.9 (3) HTN (hypertension) Comment: - Normotensive, continue irbesartan and amlodipine. (4) Pancytopenia Current Visit: Yes Status: Acute Code(s): D61.818 - OTHER PANCYTOPENIA SNOMED Code(s): 683028796 Comment: - Continued low platelets, stable compared to yesterday. - Continue to hold DVT prophylaxis. - Likely alcohol induced - Monitor daily (5) Right leg weakness Comment: - Unknown cause, no back pain able to be elicited on exam - Possible radiculoapthy, also bordeline B12 deficient, diabetic and alcoholic which may be contributing to neuropathy, though no evidence of polyneuropathy - Patient states it is much worse over last 2 weeks - Contributing to frequent falls. - MRI brain: No acute findings - MRI Lumbar spine: possible mild subacute/acute L3 compression fx; No spinal tenderness, low back pain. - Right foot drop which patient reports has been present for several weeks. - Benefit from Neurology appointment as oupatient (6) DVT prophylaxis Comment: - SCDs in setting to thrombocytopenia (7) Full code status Status and Disposition: Inpatient for alcohol withdrawal, May benefit from alcohol rehab at discharge. Anticipate 1-2 more days.
[2018-03-19] MEDS: Thiamine IV* 250 MG in NS 0.9% 100 ML* 100 ML IV SCH (18:31)
[2018-03-20 06:58] LABS: Hematocrit 29 % (42-52); Hemoglobin 10.3 g/dl (14.0-18.0); Mean Corpuscular HGB Conc 35 g/dl (31-36); Mean Corpuscular Hemoglobin 32 pg (27-31); Mean Corpuscular Volume 92 fL (80-94); Mean Platelet Volume 7.7 fL (7.4-10.4); Platelet Count 79 10^3/ul (150-450); Red Blood Count 3.18 10^6/ul (4.00-5.40); Red Cell Distribution Width 15 % (10.5-15); White Blood Count 4.2 10^3/ul (3.5-10.8)
[2018-03-20 07:00] LABS: INR 1.11 (0.77-1.02)
[2018-03-20 07:16] LABS: Albumin 3.6 g/dL (3.2-5.2); Albumin/Globulin Ratio 1.1 (1-3); BUN/Creatinine Ratio 15.1 (8-20); Calcium 9.3 mg/dL (8.6-10.3); EGFR African American 130.5 (>60); EGFR Non-African American 107.8 (>60); Globulin 3.4 g/dL (2-4); Magnesium 1.6 mg/dL (1.9-2.7); Potassium 3.4 mmol/L (3.5-5.0); Total Bilirubin 1.1 mg/dL (0.2-1.0)
[2018-03-20] MEDS: Multivitamins/Minerals TAB PO SCH (09:37)
[2018-03-20] MEDS: guaiFENesin ER TAB 600 MG PO SCH ×2 (09:37→22:58)
[2018-03-20] MEDS: Cyanocobalamin TAB* 500 MCG PO SCH (09:37)
[2018-03-20] MEDS: Metoprolol Succinate XL TAB* 50 MG PO SCH (09:37)
[2018-03-20] MEDS: IRBESARTAN 150 MG PO SCH (09:37)
[2018-03-20] MEDS: Folic Acid TAB* 1 MG PO SCH (09:38)
[2018-03-20] MEDS: amLODIPine TAB* 5 MG PO SCH (09:38)
[2018-03-20] MEDS: Nystatin TOP POWDER* 15 GM BTL TOPICAL SCH ×2 (10:18→22:57)
[2018-03-20] MEDS ORDERED: Potassium Chlor TAB* 20 MEQ TAB.ER PO ONE ×2 (12:47→17:00)
[2018-03-20] MEDS ORDERED: Magnesium Sulfate 2 GM IV* 2 GM/50 ML BAG IVPB ONE (12:47)
--- NOTE | 2018-03-20 17:39 | PN ---
Subjective Date of Service: 03/20/18 Interval History: Sitting in bed on assessment. Reports he feels less weak today. Denies chest pain, palpitations, nausea, vomiting, diarrhea, shortness of breath , dizziness, fever, chills. Family History: Unchanged from Admission Social History: Unchanged from Admission Past Medical History: Unchanged from Admission Objective Active Medications: Acetaminophen (Tylenol Tab*) 650 mg PO Q4H PRN PRN Reason: FEVER/PAIN Last Admin: 03/17/18 10:39 Dose: 650 mg Albuterol (Ventolin 2.5 Mg/3 Ml Neb.Amber*) 2.5 mg INH Q4H PRN PRN Reason: SOB/WHEEZING Amlodipine Besylate (Norvasc Tab*) 5 mg PO DAILY [facility] Last Admin: 03/20/18 09:38 Dose: 5 mg Calcium Carbonate (Tums*) 500 mg PO BID PRN PRN Reason: indigestion Last Admin: 03/19/18 20:58 Dose: 500 mg Cyanocobalamin (Vitamin B12 Tab*) 1,000 mcg PO DAILY [facility] Last Admin: 03/20/18 09:37 Dose: 1,000 mcg Dextrose (D50w Syringe 50 Ml*) 12.5 gm IV PUSH .FOR FS < 60 - SS PRN PRN Reason: FS < 60 Folic Acid (Folvite Tab*) 1 mg PO DAILY [facility] Last Admin: 03/20/18 09:38 Dose: 1 mg Guaifenesin (Mucinex*) 1,200 mg PO BID [facility] Last Admin: 03/20/18 09:37 Dose: 1,200 mg Thiamine HCl 250 mg/ Sodium (Chloride) 102.5 mls @ 205 mls/hr IV Q24H [facility] Stop: 03/20/18 18:29 Last Admin: 03/19/18 18:31 Dose: 205 mls/hr Irbesartan (Avapro (Nf)) 150 mg PO DAILY [facility] Last Admin: 03/20/18 09:37 Dose: 150 mg Lorazepam (Ativan Tab(*)) 0 - [address] [facility] PROTOCOL [facility]; Protocol Last Admin: 03/18/18 01:07 Dose: 2 mg Magnesium Hydroxide (Milk Of Magnesia Liq*) 30 ml PO Q4H PRN PRN Reason: CONSTIPATION Metoprolol Succinate (Toprol Xl Tab*) 150 mg PO DAILY [facility] Last Admin: 03/20/18 09:37 Dose: 150 mg Multivitamins/Minerals (Theragran/Minerals Tab*) 1 tab PO DAILY [facility] Last Admin: 03/20/18 09:37 Dose: 1 tab Nystatin (Nystatin Top Powder*) 1 applic TOPICAL BID [facility] Last Admin: 03/20/18 10:18 Dose: Not Given Ondansetron HCl (Zofran Inj*) 4 mg IV Q4H PRN PRN Reason: NAUSEA/VOMITING Last Admin: 03/15/18 16:34 Dose: 4 mg Oxygen Devices in Use Now: None Appearance: Comfortable, NAD Eyes: PERRLA, - - Left eye exotropia Ears/Nose/Mouth/Throat: Clear Oropharnyx, Mucous Membranes Moist Neck: NL Appearance and Movements; NL JVP Respiratory: Symmetrical Chest Expansion and Respiratory Effort, Clear to Auscultation Cardiovascular: NL Sounds; No Murmurs; No JVD, RRR, No Edema Abdominal: NL Sounds; No Tenderness; No Distention Lymphatic: No Cervical Adenopathy Extremities: No Edema Skin: No Rash or Ulcers Neurological: Alert and Oriented x 3, NL Sensation, - - Right foot drop. Otherwise LE strength equal. Nutrition: Taking PO's Result Diagrams: 03/20/18 06:12 03/20/18 06:12 Additional Lab and Data: Laboratory Results - last 24 hr 03/20/18 03/20/18 03/20/18 06:12 06:12 06:12 WBC 4.2 RBC 3.18 L Hgb 10.3 L Hct 29 L MCV 92 MCH 32 H MCHC 35 RDW 15 Plt Count 79 L MPV 7.7 INR (Anticoag Therapy) 1.11 H Sodium 137 Potassium 3.4 L Chloride 105 Carbon Dioxide 22 Anion Gap 10 BUN 11 Creatinine 0.73 Est GFR ( Amer) 130.5 Est GFR (Non-Af Amer) 107.8 BUN/Creatinine Ratio 15.1 Glucose 110 H Calcium 9.3 Magnesium 1.6 L Total Bilirubin 1.10 H AST 47 H ALT 36 Alkaline Phosphatase 55 Total Protein 7.0 Albumin 3.6 Globulin 3.4 Albumin/Globulin Ratio 1.1 Microbiology and Other Data: Microbiology 03/17/18 16:55 Urine Urine Culture - Final No Growth (<1,000 CFU/mL) Assess/Plan/Problems-Billing Assessment: Patient is a 67yo male with a PMH for alcohol abuse, DM II, HTN, who is admitted with nausea and alcohol withdrawal and is still suffering significant symptoms of withdrawal. - Patient Problems (1) Alcohol withdrawal Comment: - Improving - Likely had to stop drinking due to nausea and then began withdrawing - Continue WAM protocol, symptoms much improved - Appreciate social work assistance. Insurance will not cover CARS placement - Continue vitamin supplementation - Replace electrolytes PRN - Has mild alcoholic hepatitis, no indication for steroids at this time. (2) DM II (diabetes mellitus, type II), controlled Comment: - SSI while in the hospital, good control with A1c of 5.9 (3) HTN (hypertension) Comment: - Normotensive, continue irbesartan and amlodipine. (4) Pancytopenia Comment: - Continued low platelets, improving from admission. - Continue to hold DVT prophylaxis. - Likely alcohol induced - Monitor daily (5) Right leg weakness Comment: - Unknown cause, no back pain able to be elicited on exam - Possible radiculoapthy, also bordeline B12 deficient, diabetic and alcoholic which may be contributing to neuropathy, though no evidence of polyneuropathy - Patient states it is much worse over last 2 weeks - Contributing to frequent falls. - MRI brain: No acute findings - MRI Lumbar spine: possible mild subacute/acute L3 compression fx, no disc involvement or impingement; No spinal tenderness; No low back pain. - Right foot drop which patient reports has been present for several weeks. - Neurology consulted and I appreciate their input. Would benefit from EMG as outpatient. - AFO brace ordered. (6) DVT prophylaxis Comment: - SCDs in setting to thrombocytopenia (7) Full code status Status and Disposition: Inpatient for alcohol withdrawal and neurological deficits. Would very much benefit from subacute rehab Attending: Sebas Sanchez
[2018-03-20] MEDS: Thiamine IV* 250 MG in NS 0.9% 100 ML* 100 ML IV SCH (18:24)
--- NOTE | 2018-03-20 18:27 | CONS ---
CC: Dr. Geovany Partida * CONSULTATION REPORT: DATE OF ADMISSION: 03/15/18 DATE OF CONSULT: 03/20/18 PRIMARY CARE PHYSICIAN: Dr. Geovany Partida. REASON FOR CONSULTATION: Difficulty ambulating and right footdrop. HISTORY OF PRESENT ILLNESS: Mr. Hakan Bonner is a 67-year-old gentleman with a history of hypertension; diabetes, diet controlled; and a history of heavy alcohol use for many years. He came to the ER back on 03/15/18 with a history of several days of nausea and vomiting. It was noted at that time that he drinks approximately 2 pints of scotch on a daily basis, although he states that he only drinks 1 pint. He does note that he has been drinking for many years. He also notes a history of intermittent episodes, where he will become nauseated, vomit, have diarrhea, and then becomes diffusely weak in his lower extremities. He did stop drinking the day before admission. His blood-alcohol level on admission was less than 10. Initially, the first morning, he became tremulous and was unable to ambulate. His at that time noted frequent falls. She states that he has had trouble going upstairs at home, that he is dragging his right foot, and he confirms this. At one point, he fell and was on the floor for many hours, unable to get up. The patient also notes that when he drives he has a hard time pushing the foot pedal down with the right foot. He states that these symptoms have been waxing and waning, but progressing over the last several months. The confirmed this. She feels like the last 6 weeks he has been getting worse. He denies any back pain. He denies any bladder or bowel incontinence. He denies any headaches, neck pain. He denies any upper extremity numbness, tingling, or weakness. No problems swallowing or speaking . No problems breathing. He states that he is back to his normal health other than the weakness, which he experiences in his right greater than left lower extremity. He also notes feeling very unsteady and notes balance issues. He has had to use a walker more often. Again, this has been going on for several weeks. He has had several recent episodes of nausea, vomiting, diarrhea. He notes no fevers at home, no recent rashes or lesions, no recent bites, no recent travel. He notes no muscle aches or pains. He does feel like he has lost some weight, but notes poor appetite. He did receive banana bag and has had vitamin replacement, including thiamine since admission. PAST MEDICAL HISTORY: As noted above. CURRENT MEDICATIONS: Include: 1. Tylenol. 2. Albuterol. 3. Amlodipine. 4. Tums. 5. Vitamin B12. 6. Dextrose. 7. Folic acid. 8. Guaifenesin. 9. Irbesartan. 10. Lorazepam. 11. Milk of magnesia. 12. Metoprolol. 13. Multivitamin. 14. Nystatin powder. 15. Zofran. 16. Potassium chloride. 17. Thiamine. ALLERGIES: He is allergic to HYDROCHLOROTHIAZIDE which causes shortness of breath. FAMILY HISTORY: Significant for hypertension in his mother and atrial fib in his sister. SOCIAL HISTORY: Heavy alcohol use. He states that he smoked in the past, but has not smoked for years. Denies any drug use. 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 He is . His is at the bedside with him. REVIEW OF SYSTEMS: Review of systems of 14 organ systems as noted above, otherwise negative. PHYSICAL EXAM: Vital Signs: Temp was 99.7, pulse 70, respiratory rate of 14, pulse ox 98%, blood pressure 149/75 with a high of 164/90. In general, he is a well-developed although poorly nourished gentleman, sitting in his hospital bed. He is pleasant in a hospital gown. He is normocephalic, atraumatic. Sclerae are anicteric. Mucous membranes are slightly dry. Oropharynx is clear. Poor dentition. Neck is supple. No thyromegaly. No carotid bruits. No meningismus. Chest is clear to auscultation bilaterally. Cardiovascular is regular rate and rhythm without murmurs. Abdomen is nontender. Extremities: No clubbing, cyanosis, or edema. His skin is warm and dry. Neurologic Examination: He is awake, alert, oriented x3. His speech is fluent. There is no dysarthria. He does have a Kh[place] accent. His recall of recent and remote events is somewhat impaired. He has a hard time remembering details. Cranial Nerves: Pupils are equally round and reactive to light and accommodation. Extraocular muscles, he has an exotropia of the right eye, which is chronic in nature. Visual acosta are full. No diplopia. No nystagmus. Face is symmetric. Facial sensation is intact to light touch. Hearing is intact bilaterally. Tongue is midline. Palate raises symmetrically. Motor Exam: He is 5/5 in the upper extremities. He has some mild distal weakness in the right lower extremity with 3/5 dorsiflexion on the right, 4+/5 plantarflexion on the right. He has some mild loss of eversion on the right, inversion is normal. On the left side, he is 5/5 throughout. His tone is slightly diminished in the lower extremities. He has some atrophy of his muscles that is generalized. He has no real fasciculations on examination of his arms and legs or tongue. DTRs are absent at the ankles, withdraw Babinski's bilaterally, 1+ at the patella, 1+ at the biceps, 1+ at the triceps, 1+ at the brachioradialis, they are symmetric. Sensation: He has marked loss of light touch, pinprick, vibration, and proprioception in the feet bilaterally , right slightly greater than left, this is a present to the shins; the hands and arms are intact. [id number] and rapid alternating movements are intact. Heel to lobo are intact. He is tremulous and has some intention tremor bilaterally. Gait is wide-based. He is using a walker. He is able to ambulate, but has a noted footdrop on the right and drags that foot. Romberg; when he stands, he has moderate sway with eyes open and closed. DIAGNOSTIC STUDIES/LAB DATA: Most recent lab work includes a white count of 4.2 , hemoglobin of 10.3, hematocrit of 29. INR 1.11. Blood sugars have been 110 to 122 to 110. Magnesium 1.6. Total bili of 1.10 down from 1.70, AST of 47. His potassium today is 3.4. Vitamin B12 is 282, folate is 7.66. Urine positive for urobilinogen. 1+ protein, trace ketones. Serum alcohol less than 10 on admission. He has had several studies done including a lumbar spine MRI which showed mild increased signal without any loss of height in the inferior endplate of L3, which may represent subacute compression fracture in the setting of trauma. No retropulsion. No paravertebral soft tissue swelling. There are multilevel degenerative changes. He has no significant spinal stenosis. He has multilevel neuroforaminal narrowing which is mild at L2-3, moderate left and mild to moderate right at L3-4, moderate to severe right abutting the exiting L4 nerve root and mild- to-moderate left, and moderate right and [id number] left at L5-S1. He had a CT scan of the neck done which was for any other cervical spine, no evidence for fracture, mild-to- moderate cervical spondylosis. He had an MRI of the brain done, no acute abnormality. He has chronic macrovascular changes. No hemorrhage. No ventriculomegaly. Films reviewed and agreed. Brain CT, no evidence for intracranial mass or hemorrhage. ASSESSMENT AND PLAN: Mr. Hakan Bonner is a 67-year-old gentleman with a history of significant alcohol use, stating back many years at least a pint a day of hard liquor; a history of hypertension; diabetes who presents to the hospital with acute alcohol withdrawal now several days out, did receive multivitamin, folic acid, and thiamine and was placed on the [facility] protocol for seizure prophylaxis. He is improving from that aspect. He states the diabetes has been controlled with diet, although his blood sugars have been elevated during the hospitalization. He has been on sliding scale. He has had frequent falls. He has a right-sided footdrop and he has sensory loss bilaterally in a stocking distribution. This has been ongoing for some time. He notes periods of weakness of his lower extremities. His reflexes are down, but preserved. He has no hyperreflexia. He has no evidence of fasciculations. Differential would include a diabetic peripheral neuropathy, possibly peroneal neuropathy related to diabetes. Given the findings on examination, especially the sensory findings, I suspect that both diabetes and alcohol are playing a role. I explained that alcohol and diabetes together are likely contributing to his marked sensory loss of proprioception, vibration, light touch, and pinprick. This is contributing to his falls and balance issues. He could have an element of cerebellar ataxia related to the alcohol, although I see no strong evidence for cerebellar degeneration. The footdrop could be from an isolated peroneal nerve neuropathy, although it could be related to the underlying diabetes and alcohol as well. I have discussed with him the importance of alcohol cessation. I have also discussed the importance of tight blood glucose control over time. I have asked him to use a walker at all times. The plan is to get an outpatient EMG/nerve conduction study. I recommend repleting his vitamin B12. I am going to check a serum protein electrophoresis. Muscle enzymes were normal. My suspicion for a myopathy is low. While he has a footdrop, his strength is otherwise generally preserved. Reflexes are down, but present at least suggesting the possibility of a motor neuron disease, but my suspicion is low given his underlying other risk factors. Again, EMG/nerve conduction study planned as an outpatient. Until that time, I recommended physical therapy and continued use of the walker. I will plan to see him as an outpatient. Please schedule a followup appointment, at which point we will arrange for an EMG/ nerve conduction study. For now, conservative management with physical therapy and diabetes control. Thank you for the opportunity to participate in the care of this very interesting patient. [id number]/[facility] #: [id number] ABRAN
[2018-03-21 06:58] LABS: ABS Basophils 0 10^3/ul (0-0.2); ABS Eosinophils 0.1 10^3/ul (0-0.6); ABS Lymphocytes 0.9 10^3/ul (1.0-4.8); ABS Monocytes 0.9 10^3/ul (0-0.8); ABS Neutrophils 2.2 10^3/ul (1.5-7.7); ABS Nucleated RBC 0 10^3/ul; Eosinophil % 2.9 %; Hematocrit 29 % (42-52); Hemoglobin 9.9 g/dl (14.0-18.0); Lymphocyte % 22.3 %; Mean Corpuscular HGB Conc 34 g/dl (31-36); Mean Corpuscular Hemoglobin 32 pg (27-31); Mean Corpuscular Volume 92 fL (80-94); Nucleated Red Blood Cells % 0; Platelet Count 90 10^3/ul (150-450); Red Blood Count 3.15 10^6/ul (4.00-5.40); Red Cell Distribution Width 14 % (10.5-15); White Blood Count 4.2 10^3/ul (3.5-10.8)
[2018-03-21 07:18] LABS: Albumin 3.6 g/dL (3.2-5.2); Albumin/Globulin Ratio 1.1 (1-3); BUN/Creatinine Ratio 16.7 (8-20); Calcium 9.6 mg/dL (8.6-10.3); EGFR African American 120.9 (>60); EGFR Non-African American 99.9 (>60); Globulin 3.3 g/dL (2-4); Potassium 3.6 mmol/L (3.5-5.0); Total Bilirubin 0.9 mg/dL (0.2-1.0); Total Protein 6.9 g/dL (6.4-8.9)
[2018-03-21 07:46] LABS: Magnesium 1.6 mg/dL (1.9-2.7)
[2018-03-21] MEDS: Metoprolol Succinate XL TAB* 50 MG PO SCH (09:50)
[2018-03-21] MEDS: amLODIPine TAB* 5 MG PO SCH (09:50)
[2018-03-21] MEDS: Folic Acid TAB* 1 MG PO SCH (09:50)
[2018-03-21] MEDS: Multivitamins/Minerals TAB PO SCH (09:50)
[2018-03-21] MEDS: IRBESARTAN 150 MG PO SCH (09:50)
[2018-03-21] MEDS: Cyanocobalamin TAB* 500 MCG PO SCH (09:50)
[2018-03-21] MEDS: Nystatin TOP POWDER* 15 GM BTL TOPICAL SCH ×2 (09:51→21:26)
[2018-03-21] MEDS: guaiFENesin ER TAB 600 MG PO SCH ×2 (09:57→20:17)
[2018-03-21] MEDS ORDERED: Magnesium Sulfate 2 GM IV* 2 GM/50 ML BAG IVPB ONE (18:02)
--- NOTE | 2018-03-21 18:09 | PN ---
Subjective Date of Service: 03/21/18 Interval History: Patient observed walking in hallway with walker and stand by assist (physical therapist). Patient denies chest pain, nausea, vomiting, diarrhea, shortness of breath, numbess/tingling, dizziness. Family History: Unchanged from Admission Social History: Unchanged from Admission Past Medical History: Unchanged from Admission Objective Active Medications: Acetaminophen (Tylenol Tab*) 650 mg PO Q4H PRN PRN Reason: FEVER/PAIN Last Admin: 03/17/18 10:39 Dose: 650 mg Albuterol (Ventolin 2.5 Mg/3 Ml Neb.Amber*) 2.5 mg INH Q4H PRN PRN Reason: SOB/WHEEZING Amlodipine Besylate (Norvasc Tab*) 5 mg PO DAILY [facility] Last Admin: 03/21/18 09:50 Dose: 5 mg Calcium Carbonate (Tums*) 500 mg PO BID PRN PRN Reason: indigestion Last Admin: 03/19/18 20:58 Dose: 500 mg Cyanocobalamin (Vitamin B12 Tab*) 1,000 mcg PO DAILY [facility] Last Admin: 03/21/18 09:50 Dose: 1,000 mcg Dextrose (D50w Syringe 50 Ml*) 12.5 gm IV PUSH .FOR FS < 60 - SS PRN PRN Reason: FS < 60 Folic Acid (Folvite Tab*) 1 mg PO DAILY [facility] Last Admin: 03/21/18 09:50 Dose: 1 mg Guaifenesin (Mucinex*) 1,200 mg PO BID [facility] Last Admin: 03/21/18 09:57 Dose: 1,200 mg Magnesium Sulfate (Magnesium Sulfate 2 Gm Iv*) 2 gm in 50 mls @ 50 mls/hr IVPB ONCE ONE Stop: 03/21/18 19:01 Irbesartan (Avapro (Nf)) 150 mg PO DAILY [facility] Last Admin: 03/21/18 09:50 Dose: 150 mg Lorazepam (Ativan Tab(*)) 0 - 6 mg PO .PER [facility] PROTOCOL [facility]; Protocol Last Admin: 03/18/18 01:07 Dose: 2 mg Magnesium Hydroxide (Milk Of Magnesia Liq*) 30 ml PO Q4H PRN PRN Reason: CONSTIPATION Last Admin: 03/21/18 09:56 Dose: 30 ml Metoprolol Succinate (Toprol Xl Tab*) 150 mg PO DAILY [facility] Last Admin: 03/21/18 09:50 Dose: 150 mg Multivitamins/Minerals (Theragran/Minerals Tab*) 1 tab PO DAILY [facility] Last Admin: 03/21/18 09:50 Dose: 1 tab Nystatin (Nystatin Top Powder*) 1 applic TOPICAL BID [facility] Last Admin: 03/21/18 09:51 Dose: Not Given Ondansetron HCl (Zofran Inj*) 4 mg IV Q4H PRN PRN Reason: NAUSEA/VOMITING Last Admin: 03/15/18 16:34 Dose: 4 mg Vital Signs - 8 hr 03/21/18 11:22 Temperature 97.3 F Pulse Rate 69 Respiratory 18 Rate Blood Pressure 131/71 (mmHg) O2 Sat by Pulse 99 Oximetry Oxygen Devices in Use Now: None Appearance: Comfortable, NAD Eyes: PERRLA Ears/Nose/Mouth/Throat: Clear Oropharnyx, Mucous Membranes Moist Neck: NL Appearance and Movements; NL JVP Respiratory: Symmetrical Chest Expansion and Respiratory Effort, Clear to Auscultation Cardiovascular: NL Sounds; No Murmurs; No JVD, RRR, No Edema Abdominal: NL Sounds; No Tenderness; No Distention Lymphatic: No Cervical Adenopathy Extremities: No Edema Skin: No Rash or Ulcers Neurological: Alert and Oriented x 3, NL Sensation, - - right foot drop, otherwise, strength equal in upper and lower extrem Nutrition: Taking PO's Result Diagrams: 03/21/18 06:46 03/21/18 06:46 Additional Lab and Data: Laboratory Results - last 24 hr 03/21/18 03/21/18 06:46 06:46 WBC 4.2 RBC 3.15 L Hgb 9.9 L Hct 29 L MCV 92 MCH 32 H MCHC 34 RDW 14 Plt Count 90 L MPV 8.0 Neut % (Auto) 51.8 Lymph % (Auto) 22.3 [place] % (Auto) 22.1 Eos % (Auto) 2.9 Baso % (Auto) 0.9 Absolute Neuts (auto) 2.2 Absolute Lymphs (auto) 0.9 L Absolute Monos (auto) 0.9 H Absolute Eos (auto) 0.1 Absolute Basos (auto) 0 Absolute Nucleated RBC 0 Nucleated RBC % 0 Sodium 138 Potassium 3.6 Chloride 107 Carbon Dioxide 22 Anion Gap 9 BUN 13 Creatinine 0.78 Est GFR ( Amer) 120.9 Est GFR (Non-Af Amer) 99.9 BUN/Creatinine Ratio 16.7 Glucose 118 H Calcium 9.6 Magnesium 1.6 L Total Bilirubin 0.90 AST 68 H ALT 43 Alkaline Phosphatase 52 Total Protein 6.9 Albumin 3.6 Globulin 3.3 Albumin/Globulin Ratio 1.1 Microbiology and Other Data: Microbiology 03/17/18 16:55 Urine Urine Culture - Final No Growth (<1,000 CFU/mL) Assess/Plan/Problems-Billing Assessment: Patient is a 67yo male with a PMH for alcohol abuse, DM II, HTN, who is admitted with nausea and alcohol withdrawal and is still suffering significant symptoms of withdrawal. - Patient Problems (1) Alcohol withdrawal Comment: - Improving - Likely had to stop drinking due to nausea and then began withdrawing - Continue WAM protocol, symptoms much improved - Appreciate social work assistance. - Continue vitamin supplementation - Replace electrolytes PRN - Has mild alcoholic hepatitis, no indication for steroids at this time. (2) DM II (diabetes mellitus, type II), controlled Comment: - SSI while in the hospital, good control with A1c of 5.9 (3) HTN (hypertension) Comment: - Normotensive, continue irbesartan and amlodipine. (4) Pancytopenia Comment: - Continued low platelets, improving from admission. - Continue to hold DVT prophylaxis. - Likely alcohol induced - Monitor daily (5) Right leg weakness Comment: - Unknown cause, no back pain able to be elicited on exam - Possible radiculoapthy, also bordeline B12 deficient, diabetic and alcoholic which may be contributing to neuropathy, though no evidence of polyneuropathy - Patient states it is much worse over last 2 weeks - Contributing to frequent falls. - MRI brain: No acute findings - MRI Lumbar spine: possible mild subacute/acute L3 compression fx, no disc involvement or impingement; No spinal tenderness; No low back pain. - Right foot drop which patient reports has been present for several weeks. - Neurology consulted and I appreciate their input. Would benefit from EMG as outpatient in 8 to 12 wks - AFO brace ordered and delivered today (6) DVT prophylaxis Comment: - SCDs in setting to thrombocytopenia (7) Full code status Status and Disposition: Inpatient for alcohol withdrawal and neurological deficits. Would very much benefit from subacute rehab, but refusing. Patient to be discharged tomorrow with [facility] physical therapy at home. Attending: Gerri Finn
[2018-03-22 07:18] LABS: Albumin 3.6 g/dL (3.2-5.2); Albumin/Globulin Ratio 1.1 (1-3); BUN/Creatinine Ratio 20.8 (8-20); Calcium 9.6 mg/dL (8.6-10.3); EGFR African American 122.7 (>60); EGFR Non-African American 101.4 (>60); Globulin 3.4 g/dL (2-4); Magnesium 1.9 mg/dL (1.9-2.7); Potassium 3.6 mmol/L (3.5-5.0); Total Bilirubin 0.9 mg/dL (0.2-1.0)
[2018-03-22] MEDS: IRBESARTAN 150 MG PO SCH (09:49)
[2018-03-22] MEDS: Multivitamins/Minerals TAB PO SCH (09:49)
[2018-03-22] MEDS: guaiFENesin ER TAB 600 MG PO SCH (09:49)
[2018-03-22] MEDS: Metoprolol Succinate XL TAB* 50 MG PO SCH (09:49)
[2018-03-22] MEDS: Folic Acid TAB* 1 MG PO SCH (09:49)
[2018-03-22] MEDS: Cyanocobalamin TAB* 500 MCG PO SCH (09:50)
[2018-03-22] MEDS: amLODIPine TAB* 5 MG PO SCH (09:50)
[2018-03-22] MEDS: Nystatin TOP POWDER* 15 GM BTL TOPICAL SCH (09:54)
--- NOTE | 2018-03-22 12:45 | DS ---
CC: Dr. Geovany Partida* DISCHARGE SUMMARY: DATE OF ADMISSION: 03/15/18 DATE OF DISCHARGE: 03/22/18 PRIMARY CARE PROVIDER: Dr. Geovany Partida ATTENDING PHYSICIAN: Dr. Gerri Finn* (dictated by Jenny Núñez NP). PRIMARY DIAGNOSES: 1. Alcohol abuse with withdrawal. 2. Frequent falls. 3. Transaminitis. 4. Hypomagnesemia. SECONDARY DIAGNOSES: 1. Diabetes. 2. Hypertension. STUDIES WHILE IN THE HOSPITAL: 1. CT of brain: Impression: There is no evidence of intracranial mass or hemorrhage. 2. Liver ultrasound: Impression: Hepatomegaly with hepatosteatosis. Nonspecific gallbladder wall thickening which may be seen in the setting of liver disease. A 1.2 cm maximum dimension Bosniak 2F minimal complex cyst of lower pole, cortex of the right kidney for which an ultrasound followup in the 6 months' time is suggested. 3. Cervical spine CT: Impression: Straightening of the cervical spine. No evidence of fracture. [id number] cervical spondylosis as prescribed. 4. Brain MRI: Impression: No acute abnormalities. 5. Lumbar spine MRI: Impression: Mild increase in STIR signal without any loss of height in the inferior endplate of L3 may represent a mild acute/ subacute compression fracture in the setting of trauma. No retropulsion. No prevertebral soft tissue swelling. Multi-degenerative changes as noted above. CONSULTATIONS WHILE IN THE HOSPITAL: Dr. Bull Montague; Neurology. DISCHARGE HOME MEDICATIONS: [facility] Medications: 1. Folic acid 1 mg p.o. daily. 2. Multivitamin 1 tab p.o. daily. 3. Vitamin B12 tab 1000 mcg p.o. daily. Continued Home Medication: 1. Amlodipine 5 mg p.o. daily. 2. Metoprolol succinate XL 150 mg p.o. daily. 3. Avapro 150 mg p.o. daily. Discontinued Home Medications: No home medications were discontinued. Changed Home Medications: No home medications were changed. HISTORY OF PRESENT ILLNESS/HOSPITAL COURSE: Mr. Hakan Bonner is a 67-year-old male with a past medical history significant for hypertension, diabetes, and alcohol abuse, who presented to the emergency room on 03/15/18 with vomiting x24 hours, frequent falls, right lower extremity inability to dorsiflex. Please see history and physical dictated by Elizabeth Mendoza NP, for a complete summary of events leading up to admission, but in short while patient was in the emergency room, he was visibly tremulous and tachycardic. He had a very low mag of 0.8. Therefore, he was admitted for suspected alcohol withdrawal. While admitted, patient received vitamin replacement, IV fluids, was placed on a WAM protocol, and was placed on seizure precautions. Patient's labs have stabilized nicely. Today, his magnesium and potassium are within normal limits. During this hospital stay, he was also evaluated due to his frequent falls. On admission, patient's states he had progressive decline in function over the past 6 weeks, inability to drive. Patient was seen by PT, OT, and Neurology. I suspect the patient's footdrop is possibly related to diabetic neuropathy and his alcohol abuse. Patient has improved while inpatient with services from Physical Therapy. Patient is able to ambulate with a walker and a standby assist. Patient is stable for discharge today as he is free from signs of withdrawal, laboratory data stabilized, and he can successfully ambulate with steady gait. REVIEW OF SYSTEMS: Fourteen-point review of systems completed, all were negative. PHYSICAL EXAM: Vital signs as follows: Temp 98.6, heart rate 64, respirations 16, O2 sat 98%, blood pressure 142/70. General: Mr. Hakan Bonner is a 67-year- old male, he is sitting on the edge of the bed, appears in no acute distress, appears stated age. HEENT: EOMs intact. PERRLA. Oral mucosa is moist, without lesion. Neck: Supple. No lymphadenopathy. Cardiac: S1, S2 present. No murmurs, rubs, or gallops. Regular rate and rhythm. Respiratory: Lungs are clear. No wheezes, rhonchi, or rubs. Abdomen: Abdomen is soft, nontender , bowel sounds x4. Extremities: No edema. No clubbing or cyanosis. Neuro: Cranial nerves II through XII intact. Coordination intact. No drift. Upper and lower extremity strength is generally equal with the exception of right footdrop. Skin: Skin is intact. DISCHARGE PLAN/FOLLOW-UP: 1. Alcohol abuse with withdrawal: As mentioned in the above description, the patient has improved and is free from signs of alcohol withdrawal. It should be mentioned that the patient reports two pints of scotch daily. In addition, the endorses the patient drinks first thing in the morning. The patient has been educated on the risks of this amount of alcohol consumption by this leader writer and also Neurology. The patient was offered inpatient rehab which he declined. The patient has been encouraged to abstain from alcohol. The patient should follow-up with his primary care provider. The patient has been provided with outpatient resources for alcohol abstinence. 2. Frequent falls: We suspect the patient's frequent falls are multifactorial , possibly from his alcohol consumption and diabetic neuropathy. In addition, the patient does have a foot drop, but his strength is otherwise preserved. The patient has been fitted with an AFO boot to help with his foot drop. The patient was offered subacute rehab due to weakness and frequent falls, but he declined and the patient with be set up with [facility] physical therapy at home. The patient should continue to use his walker. The patient should follow-up with Neurology as an outpatient. Neurology would like to see him in 8 to 12 weeks for an EMG/nerve conduction study to further evaluate the patient's falls and right foot drop. For now, conservative management with physical therapy and diabetes control is sufficient. 3. Transaminitis: The patient's liver enzymes were mildly elevated on admission. While an inpatient and receiving IV fluids, they normalized. Today, they are mildly elevated again. I suspect that this is due to the patient's alcohol use. I have encouraged him to follow-up with his primary care next week and have liver function tests redrawn and assessed. If they are trending up, the patient should be referred to GI. 4. Electrolyte deficiencies: As mentioned in the HPI, the patient had significant hypomagnesemia. He would benefit form [id number]-[id number] vitamins, including multivitamin, vitamin B12, folate, magnesium. The patient can purchase these over- the-counter. 5. Diabetes: The patient states that it is diet-controlled, although he did have high blood sugars while here in the hospital. It is unsure if this is due to his alcohol withdrawal or chronically elevated sugars. It should be mentioned that his hemoglobin A1c was drawn and revealed 5.9. The patient should continue diabetic diet. The patient should abstain from alcohol. 6. Pancytopenia: The patient was noted to be pancytopenia during his hospital stay. Platelet count was initially 66, but is now 90. I suspect this is due to his alcohol use. I have encouraged the patient to follow-up with his primary care regarding further evaluation and treatment. 7. Hypertension: The patient is currently normotensive. He should continue his home medications the same. 8. Education: I discussed at length signs of a new or worsening condition and when to return to the emergency department. The patient states understanding. This plan was discussed with my attending, Dr. Finn, who agrees with my plan. TIME SPENT: Approximately 35 minutes were spent on this discharge, greater than half that time was spent [id number] with the patient discussing discharge plan and instructions. JENNY NÚÑEZ NP [id number]/CPS #: [id number]/CPS #: [id number] ABRAN
--- NOTE | 2018-03-22 13:19 | DS ---
CONTINUATION OF DISCHARGE SUMMARY DATE OF ADMISSION: 03/15/2018. DATE OF DISCHARGE: 03/22/2018. DISCHARGE PLAN/FOLLOW-UP: 1. Alcohol abuse with withdrawal: As mentioned in the above description, the patient has improved a nd is free from signs of alcohol withdrawal. It should be mentioned that the patient reports two pin ts of scotch daily. In addition, the endorses the patient drinks first thing in the morning. T he patient has been educated on the risks of this amount of alcohol consumption by this travel writer and patrice [facility] Neurology. The patient was offered inpatient rehab which he declined. The patient has been encou raged to abstain from alcohol. The patient should follow-up with his primary care provider. The pat ient has been provided with outpatient resources for alcohol abstinence. 2. Frequent falls: We suspect the patient's frequent falls are multifactorial, possibly from his al cohol consumption and diabetic neuropathy. In addition, the patient does have a foot drop, but his s trength is otherwise preserved. The patient has been fitted with an AFO boot to help with his foot d rop. The patient was offered subacute rehab due to weakness and frequent falls, but he declined and the patient with be set up with [facility] physical therapy at home. The patient should continue to use his walker. The patient should follow-up with Neurology as an outpatient. Neurology would like to see him in 8 to 12 weeks for an EMG/nerve conduction study to further evaluate the patient's falls and ri ght foot drop. For now, conservative management with physical therapy and diabetes control is suffic ient. 3. Transaminitis: The patient's liver enzymes were mildly elevated on admission. While an inpatient and receiving IV fluids, they normalized. Today, they are mildly elevated again. I suspect that th is is due to the patient's alcohol use. I have encouraged him to follow-up with his primary care nex t week and have liver function tests redrawn and assessed. If they are trending up, the patient shou ld be referred to GI. 4. Electrolyte deficiencies: As mentioned in the HPI, the patient had significant hypomagnesemia. He would benefit form [id number]-[id number] vitamins, including multivitamin, vitamin B12, folate, magnesi um. The patient can purchase these over- the-counter. 5. Diabetes: The patient states that it is diet-controlled, although he did have high blood sugars while here in the hospital. It is unsure if this is due to his alcohol withdrawal or chronically val vated sugars. It should be mentioned that his hemoglobin A1c was drawn and revealed 5.9. The patien t should continue diabetic diet. The patient should abstain from alcohol. 6. Pancytopenia: The patient was noted to be pancytopenia during his hospital stay. Platelet count was initially 66, but is now 90. I suspect this is due to his alcohol use. I have encouraged the p atient to follow-up with his primary care regarding further evaluation and treatment. 7. Hypertension: The patient is currently normotensive. He should continue his home medications th e same. 8. Education: I discussed at length signs of a new or worsening condition and when to return to the emergency department. The patient states understanding. This plan was discussed with my attending, Dr. Finn, who agrees with my plan. TIME SPENT: Approximately 35 minutes were spent on this discharge, greater than half that time was s pent [id number] with the patient discussing discharge plan and instructions. JENNY NÚÑEZ, ELIZA [id number]/CPS #: [id number]
[2018-03-22 13:24] VITALS: BP 131/70
[2018-03-22 14:38] LABS: Aldolase 6.2 U/L (<7.7)
[2018-03-23 19:08] LABS: Albumin 3.1 g/dL (3.4-4.7); Albumin/Globulin Ratio 0.85; Gamma Globulin 1.4 g/dL (0.6-1.6); Total Protein(PEP) 6.8 g/dL (6.3 - 7.9)
[2018-03-24 10:40] LABS: Methylmalonic Acid 0.12 nmol/mL (<=0.40)
== END 2018-03-22 14:30 | disposition home health service (06) | DRG 897 ==
LOC: ED 09:15 → MED 12:58
PROVIDERS: ADMIT Internal Medicine; ATTEND Hospitalist
DX: F10.239 Alcohol dependence with withdrawal, unspecified (principal); D61.818 Other pancytopenia; I10 Essential (primary) hypertension; R40.2362 Coma scale, best motor response, obeys commands, at arrival to emergency department; R40.2142 Coma scale, eyes open, spontaneous, at arrival to emergency department; R40.2252 Coma scale, best verbal response, oriented, at arrival to emergency department; R29.6 Repeated falls; H50.111 Monocular exotropia, right eye; M47.892 Other spondylosis, cervical region; Y90.0 Blood alcohol level of less than 20 mg/100 ml; K70.10 Alcoholic hepatitis without ascites; E53.8 Deficiency of other specified B group vitamins; R74.0 Nonspecific elevation of levels of transaminase and lactic acid dehydrogenase [LDH]; R53.1 Weakness; N28.1 Cyst of kidney, acquired; K76.0 Fatty (change of) liver, not elsewhere classified; E11.40 Type 2 diabetes mellitus with diabetic neuropathy, unspecified; F41.9 Anxiety disorder, unspecified; M21.371 Foot drop, right foot; E83.42 Hypomagnesemia; Z88.8 Allergy status to other drugs, medicaments and biological substances; Z87.891 Personal history of nicotine dependence; Z82.49 Family history of ischemic heart disease and other diseases of the circulatory system
CPT/HCPCS: 36415; 70450; 70551; 71045; 72125; 72148; 76705; 80048; 80053; 80320; 81003; 81015; 82085; 82150; 82550; 82607; 82746; 83036; 83690; 83735; 83874; 83921; 84155; 84165; 84484; 85025; 85027; 85060; 85610; 87086; 93005; 99285; A9270-GY; G0480; G8978-GP-CM; G8979-GP-CJ; G8987-GO-CL; G8988-GO-CI; J2060; J2405; J3411; J3475